=== PATIENT | male | born 1975 | race American Indian/Alaskan Native ===

== ENCOUNTER 2017-10-27 14:58 | Outpatient (CLI) | payer OTHER ==
[2017-10-27 15:09] LABS: Basophils # (Auto) 0.1 K/mm3 (0.0-0.1); Basophils % (Auto) 0.5 % (0.0-1.8); Eosinophils % (Auto) 0.1 % (0.0-4.3); Hematocrit 37.1 % (35.5-45.6); Hemoglobin 12.5 gm/dl (11.8-15.2); Lymphocytes # (Auto) 1.5 K/mm3 (1.2-5.4); Lymphocytes % (Auto) 9.2 % (13.4-35.0); Mean Corpuscular HGB Conc 34 % (32-34); Mean Corpuscular Hemoglobin 29 pg (28-32); Mean Corpuscular Volume 87 fl (84-94); Monocytes # (Auto) 1.4 K/mm3 (0.0-0.8); Monocytes % (Auto) 8.5 % (0.0-7.3); Platelet Count 459 K/mm3 (140-440); Red Blood Count 4.27 M/mm3 (3.65-5.03); Red Cell Distribution Width 16.9 % (13.2-15.2)
[2017-10-27 15:38] LABS: Albumin 3.8 g/dL (3.9-5)
== END 2017-10-27 14:59 | disposition home or self-care (01) ==
LOC: LABHHL 14:58
PROVIDERS: ATTEND Student in an Organized Health Care Education/Training Program
DX: E87.6 Hypokalemia (principal); D72.829 Elevated white blood cell count, unspecified; E11.9 Type 2 diabetes mellitus without complications; I10 Essential (primary) hypertension; D64.9 Anemia, unspecified; F41.9 Anxiety disorder, unspecified; F17.210 Nicotine dependence, cigarettes, uncomplicated; Z82.49 Family history of ischemic heart disease and other diseases of the circulatory system; Z83.3 Family history of diabetes mellitus
CPT/HCPCS: 36415; 80053; 85025; 87040; 87076; 87186

== ENCOUNTER 2017-10-27 18:19 | Inpatient (IN) | payer OTHER, MEDICAID ==
[2017-10-27] MEDS ORDERED: PERCOCET 5/325 PO ONE (19:05)
[2017-10-27] MEDS ORDERED: NACL 0.9% 500 ML 500 ML IV ONE (19:05)
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
[2017-10-27 20:06] LABS: Hematocrit 29.5 % (35.5-45.6); Hemoglobin 10.5 gm/dl (11.8-15.2); Mean Corpuscular HGB Conc 36 % (32-34); Mean Corpuscular Hemoglobin 31 pg (28-32); Mean Corpuscular Volume 86 fl (84-94); Platelet Count 353 K/mm3 (140-440); Red Blood Count 3.45 M/mm3 (3.65-5.03); Red Cell Distribution Width 16.5 % (13.2-15.2)
[2017-10-27 20:15] LABS: INR 1.19 (0.87-1.13)
[2017-10-27 20:16] LABS: Partial Thromboplastin Time 27.8 Sec. (24.2-36.6)
[2017-10-27 20:35] LABS: Alanine Aminotransferase 48 units/L (7-56); Albumin 3.1 g/dL (3.9-5); BUN/Creatinine Ratio 14; Basophils % (Manual) 0 % (0.0-1.8); Blood Urea Nitrogen 19 mg/dL (9-20); Eosinophils % (Manual) 0 % (0.0-4.3); Hemolysis Index 5; Total Cells Counted 100
[2017-10-27 20:37] LABS: Anisocytosis Few; Target Cells 1+
[2017-10-27] MEDS ORDERED: K-DUR PO ONE (20:49)
[2017-10-27] MEDS: KCL 10MEQ/100ML 10 MEQ/100 ML BAG IV SCH ×3 (21:26→23:32)
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
[2017-10-27] MEDS ORDERED: TYLENOL PO PRN (23:14)
--- NOTE | 2017-10-27 23:25 | History and Physical Report ---
History of Present Illness Date of examination: 10/27/17 History of present illness: 42-year-old man with a history of diabetes, pancreatitis, short gut syndrome comes emergency room with complaints of generalized weakness, cramps in his arms , legs and stomach, nausea, + bowel movement , has abdominal pain, this is chronic in nature. Review Of Systems: Constitutional: no fever, chills, weight loss Ears, eyes, nose, mouth and throat: no nasal congestion, no nasal discharge, no sinus pressure, blurry vision, diplopia Neck: No neck pain or rigidity. Cardiovascular: chest pain, orthopnea, palpitations Respiratory: No shortness of breath, cough Gastrointestinal: hematochezia Genitourinary : no dysuria, frequency , hematuria Musculoskeletal: no joint swelling or muscle ache Integumentary: no rash, no pruritis Neurological: no parathesias, focal weakness Endocrine: no cold or heat intolerance, no polyuria or polydipsia Hematologic/Lymphatic: no easy bruising, no easy bleeding, no gland swelling Allergic/Immunologic: no urticaria, no angioedema. PAST MEDICAL HISTORY:diabetes, pancreatitis, short gut syndrome PAST SURGICAL HISTORY: Multiple abdominal surgeries, splenectomy FAMILY HISTORY: Hypertension SOCIAL HISTORY: Smoke 1/3 pack a day, no alcohol or drugs Medications and Allergies Allergies Allergy/AdvReac Type Severity Reaction Status Date / Time No Known Allergies Allergy Unverified 01/30/15 15:46 Home Medications Medication Instructions Recorded Confirmed Last Taken Type Promethazine [Phenergan TAB] 25 mg PO QDAY 01/30/15 12/02/16 01/10/16 History Pantoprazole [Protonix TAB] 40 mg PO DAILY #30 tablet 01/10/16 12/02/16 Unknown Rx oxyCODONE /ACETAMINOPHEN [Percocet 2 tab PO Q6H PRN #10 tablet 12/09/16 Unknown Rx 5/325 mg] Active Meds: Active Medications Acetaminophen (Tylenol) 650 mg PO Q4H PRN PRN Reason: Pain MILD(1-3)/Fever >100.5/ACEVEDO Acetaminophen/Hydrocodone Bitart ([place] 5/325) 2 each PO Q4H PRN PRN Reason: Pain, Moderate (4-6) Enoxaparin Sodium (Lovenox) 30 mg SUB-Q QDAY LORNA Potassium Chloride (Kcl 10meq/100ml) 10 meq in 100 mls @ 100 mls/hr IV Q1H LORNA Stop: 10/28/17 00:59 Last Admin: 10/27/17 22:09 Dose: 100 mls/hr Ondansetron HCl (Zofran) 4 mg IV Q8H PRN PRN Reason: Nausea And Vomiting Sodium Chloride (Sodium Chloride Flush Syringe 10 Ml) 10 ml IV BID LORNA Sodium Chloride (Sodium Chloride Flush Syringe 10 Ml) 10 ml IV PRN PRN PRN Reason: LINE FLUSH Exam - Physical Exam Narrative exam: Gen. appearance: Patient lying in bed, no apparent distress HEENT: Normocephalic, atraumatic, pupils equally round and reactive to light, extraocular movement intact, and no sclericterus,. No JVD or thyromegaly or nodule,neck supple, no carotid bruit ,mucous membranes moist, no exudate or erythema Heart: S1, S2, regular rate and rhythm Lungs: Clear to auscultation bilaterally, breathing comfortable Abdomen: Positive bowel sounds, tender mid abdomen, nondistended, no organomegaly Extremity: No edema, cyanosis, clubbing Skin: No rash, nodules, warm, dry Neuro: Oriented 3, cranial nerves II-12 intact, speech is fluent, motor and sensory intact - Constitutional Vitals: Temp Pulse Resp BP Pulse Ox 97.7 F 58 L 12 87/59 97 10/27/17 18:31 10/27/17 21:47 10/27/17 21:47 10/27/17 21:47 10/27/17 21:47 Results - Labs CBC & Chem 7: 10/30/17 07:01 10/31/17 04:30 Labs: Abnormal lab results 10/27/17 10/27/17 10/27/17 Range/Units 21:56 Unknown Unknown WBC 15.3 H (4.5-11.0) K/mm3 RBC 3.45 L (3.65-5.03) M/mm3 Hgb 10.5 L (11.8-15.2) gm/dl Hct 29.5 L (35.5-45.6) % MCHC 36 H (32-34) % RDW 16.5 H (13.2-15.2) % Seg Neuts % (Manual) 89.0 H (40.0-70.0) % Lymphocytes % (Manual) 6.0 L (13.4-35.0) % Seg Neutrophils # Man 13.6 H (1.8-7.7) K/mm3 Lymphocytes # (Manual) 0.9 L (1.2-5.4) K/mm3 PT 15.8 H (12.2-14.9) Sec. INR 1.19 H (0.87-1.13) Potassium (3.6-5.0) mmol/L Carbon Dioxide (22-30) mmol/L Glucose (75-100) mg/dL Calcium (8.4-10.2) mg/dL Alkaline Phosphatase (35-129) units/L Total Creatine Kinase (55-170) units/L Albumin (3.9-5) g/dL Lipase 73 H (13-60) units/L // Range/Units Unknown WBC (4.5-11.0) K/mm3 RBC (3.65-5.03) M/mm3 Hgb (11.8-15.2) gm/dl Hct (35.5-45.6) % MCHC (32-34) % RDW (13.2-15.2) % Seg Neuts % (Manual) (40.0-70.0) % Lymphocytes % (Manual) (13.4-35.0) % Seg Neutrophils # Man (1.8-7.7) K/mm3 Lymphocytes # (Manual) (1.2-5.4) K/mm3 PT (12.2-14.9) Sec. INR (0.87-1.13) Potassium 2.0 L* (3.6-5.0) mmol/L Carbon Dioxide 18 L (22-30) mmol/L Glucose 124 H (75-100) mg/dL Calcium 8.0 L (8.4-10.2) mg/dL Alkaline Phosphatase 425 H (35-129) units/L Total Creatine Kinase 43 L (55-170) units/L Albumin 3.1 L (3.9-5) g/dL Lipase (13-60) units/L - Imaging and Cardiology CT scan - abdomen: report reviewed CT scan - pelvis: report reviewed Assessment and Plan Assessment Severe hypokalemia Ileus Metabolic acidosis Shortcut syndrome Diabetes Plan Admit to medicine Replete potassium, start IV fluid surgery consulted to see patient Fingersticks initiate insulin sliding scale Start DVT prophylaxis
[2017-10-27] MEDS ORDERED: D50W (25GM) Syringe IV PRN (23:29)
[2017-10-28] MEDS: NACL 0.9% 1000 ML 1,000 ML IV SCH ×2 (01:03→18:40)
[2017-10-28] MEDS: KCL 10MEQ/100ML 10 MEQ/100 ML BAG IV SCH ×5 (01:06→15:27)
[2017-10-28 06:30] LABS: Basophils # (Auto) 0.1 K/mm3 (0.0-0.1); Basophils % (Auto) 0.5 % (0.0-1.8); Eosinophils # (Auto) 0.1 K/mm3 (0.0-0.4); Eosinophils % (Auto) 0.6 % (0.0-4.3); Hemoglobin 9.8 gm/dl (11.8-15.2); Lymphocytes # (Auto) 1.1 K/mm3 (1.2-5.4); Lymphocytes % (Auto) 10.1 % (13.4-35.0); Mean Corpuscular HGB Conc 35 % (32-34); Mean Corpuscular Hemoglobin 30 pg (28-32); Mean Corpuscular Volume 85 fl (84-94); Monocytes # (Auto) 1.5 K/mm3 (0.0-0.8); Monocytes % (Auto) 14.1 % (0.0-7.3); Platelet Count 383 K/mm3 (140-440); Red Blood Count 3.29 M/mm3 (3.65-5.03); Red Cell Distribution Width 16.7 % (13.2-15.2)
[2017-10-28 06:51] LABS: BUN/Creatinine Ratio 11; Blood Urea Nitrogen 17 mg/dL (9-20); Calcium 7.7 mg/dL (8.4-10.2); Hemolysis Index 0
[2017-10-28] MEDS: HumaLOG SUB-Q SCH ×4 (07:30→21:39)
[2017-10-28] MEDS: LOVENOX SUB-Q SCH (11:00)
[2017-10-28] MEDS: SODIUM CHLORIDE FLUSH SYRINGE 10 ML IV SCH ×2 (12:21→21:39)
--- NOTE | 2017-10-28 12:24 | Progress Note ---
Assessment and Plan Assessment and plan: --Severe hypokalemia; Replace per protocol and monitor levels, Check magnesium --Abdominal ileus; Supportive care IV fluids, surgery consulted, Closely monitor, --Metabolic acidosis; Vigorous IV hydration and closely monitor levels --Type 2 diabetes mellitus; Accu-Chek sliding scale coverage and insulin as needed --Short gut syndrome; supportive care --Moderate malnutrition/hypoalbuminemia; continue supportive care and nutritional supplements as needed --DVT prophylaxis with Lovenox Closely monitor the patient and adjust management as needed History Interval history: Patient seen and evaluated medical records reviewed Patient feels better, when I evaluated the patient patient is eating his lunch No nausea vomiting, No abdominal pain Vital signs reviewed stable Patient is alert awake oriented 3 not in acute distress Hospitalist Physical - Constitutional Vitals: Temp Pulse Resp BP Pulse Ox 98.2 F 75 16 109/74 100 10/28/17 08:37 10/28/17 08:37 10/28/17 08:37 10/28/17 08:37 10/28/17 08:37 General appearance: Present: no acute distress, cachectic - EENT Eyes: Present: PERRL, EOM intact - Neck Neck: Present: supple, normal ROM - Respiratory Respiratory effort: normal Respiratory: negative: rales, rhonchi, wheezing - Cardiovascular Rhythm: regular Heart Sounds: Present: S1 & S2 - Extremities Extremities: no ischemia, No edema Peripheral Pulses: within normal limits - Abdominal General gastrointestinal: soft, non-tender, non-distended, normal bowel sounds - Integumentary Integumentary: Present: clear, warm - Psychiatric Psychiatric: appropriate mood/affect, cooperative - Neurologic Neurologic: moves all extremities Results - Labs CBC & Chem 7: 10/28/17 05:30 10/28/17 05:30 Labs: Laboratory Last Values WBC 10.9 K/mm3 (4.5-11.0) 10/28/17 05:30 RBC 3.29 M/mm3 (3.65-5.03) L 10/28/17 05:30 Hgb 9.8 gm/dl (11.8-15.2) L 10/28/17 05:30 Hct 28.0 % (35.5-45.6) L D 10/28/17 05:30 MCV 85 fl (84-94) 10/28/17 05:30 MCH 30 pg (28-32) 10/28/17 05:30 MCHC 35 % (32-34) H 10/28/17 05:30 RDW 16.7 % (13.2-15.2) H 10/28/17 05:30 Plt Count 383 K/mm3 (140-440) 10/28/17 05:30 Lymph % (Auto) 10.1 % (13.4-35.0) L 10/28/17 05:30 [place] % (Auto) 14.1 % (0.0-7.3) H 10/28/17 05:30 Eos % (Auto) 0.6 % (0.0-4.3) 10/28/17 05:30 Baso % (Auto) 0.5 % (0.0-1.8) 10/28/17 05:30 Lymph # 1.1 K/mm3 (1.2-5.4) L 10/28/17 05:30 [place] # 1.5 K/mm3 (0.0-0.8) H 10/28/17 05:30 Eos # 0.1 K/mm3 (0.0-0.4) 10/28/17 05:30 Baso # 0.1 K/mm3 (0.0-0.1) 10/28/17 05:30 Add Manual Diff Complete 10/27/17 Unknown Total Counted 100 10/27/17 Unknown Seg Neutrophils % 74.7 % (40.0-70.0) H 10/28/17 05:30 Seg Neuts % (Manual) 89.0 % (40.0-70.0) H 10/27/17 Unknown Band Neutrophils % 0 % 10/27/17 Unknown Lymphocytes % (Manual) 6.0 % (13.4-35.0) L 10/27/17 Unknown Reactive Lymphs % (Man) 0 % 10/27/17 Unknown Monocytes % (Manual) 5.0 % (0.0-7.3) 10/27/17 Unknown Eosinophils % (Manual) 0 % (0.0-4.3) 10/27/17 Unknown Basophils % (Manual) 0 % (0.0-1.8) 10/27/17 Unknown Metamyelocytes % 0 % 10/27/17 Unknown Myelocytes % 0 % 10/27/17 Unknown Promyelocytes % 0 % 07/13/18 Unknown Blast Cells % 0 % 10/27/17 Unknown Nucleated RBC % Not Reportable 10/27/17 Unknown Seg Neutrophils # 8.1 K/mm3 (1.8-7.7) H 10/28/17 05:30 Seg Neutrophils # Man 13.6 K/mm3 (1.8-7.7) H 10/27/17 Unknown Band Neutrophils # 0.0 K/mm3 10/27/17 Unknown Lymphocytes # (Manual) 0.9 K/mm3 (1.2-5.4) L 10/27/17 Unknown Abs React Lymphs (Man) 0.0 K/mm3 10/27/17 Unknown Monocytes # (Manual) 0.8 K/mm3 (0.0-0.8) 10/27/17 Unknown Eosinophils # (Manual) 0.0 K/mm3 (0.0-0.4) 10/27/17 Unknown Basophils # (Manual) 0.0 K/mm3 (0.0-0.1) 10/27/17 Unknown Metamyelocytes # 0.0 K/mm3 10/27/17 Unknown Myelocytes # 0.0 K/mm3 10/27/17 Unknown Promyelocytes # 0.0 K/mm3 10/27/17 Unknown Blast Cells # 0.0 K/mm3 10/27/17 Unknown WBC Morphology Not Reportable 10/27/17 Unknown Hypersegmented Neuts Not Reportable 10/27/17 Unknown Hyposegmented Neuts Not Reportable 10/27/17 Unknown Hypogranular Neuts Not Reportable 10/27/17 Unknown Smudge Cells Not Reportable 10/27/17 Unknown Toxic Granulation Not Reportable 10/27/17 Unknown Toxic Vacuolation Not Reportable 10/27/17 Unknown Dohle Bodies Not Reportable 10/27/17 Unknown Pelger-Huet Anomaly Not Reportable 10/27/17 Unknown Elina Rods Not Reportable 10/27/17 Unknown Platelet Estimate Appears normal 10/27/17 Unknown Clumped Platelets Not Reportable 10/27/17 Unknown Plt Clumps, EDTA Not Reportable 10/27/17 Unknown Large Platelets Not Reportable 10/27/17 Unknown Giant Platelets Not Reportable 10/27/17 Unknown Platelet Satelliting Not Reportable 10/27/17 Unknown Plt Morphology Comment Not Reportable 10/27/17 Unknown RBC Morphology Not Reportable 10/27/17 Unknown Dimorphic RBCs Not Reportable 10/27/17 Unknown Polychromasia Not Reportable 10/27/17 Unknown Hypochromasia Not Reportable 10/27/17 Unknown Poikilocytosis Not Reportable 10/27/17 Unknown Anisocytosis Few 10/27/17 Unknown Microcytosis Not Reportable 10/27/17 Unknown Macrocytosis Not Reportable 10/27/17 Unknown Spherocytes Not Reportable 10/27/17 Unknown Pappenheimer Bodies Not Reportable 10/27/17 Unknown Sickle Cells Not Reportable 10/27/17 Unknown Target Cells 1+ 10/27/17 Unknown Tear Drop Cells Not Reportable 10/27/17 Unknown Ovalocytes Not Reportable 10/27/17 Unknown Helmet Cells Not Reportable 10/27/17 Unknown Gray-[place] Bodies Not Reportable 10/27/17 Unknown [place] Rings Not Reportable 10/27/17 Unknown Eduardo Cells Not Reportable 10/27/17 Unknown Bite Cells Not Reportable 10/27/17 Unknown Crenated Cell Not Reportable 10/27/17 Unknown Elliptocytes Not Reportable 10/27/17 Unknown Acanthocytes (Spur) Not Reportable 10/27/17 Unknown Rouleaux Not Reportable 10/27/17 Unknown Hemoglobin C Crystals Not Reportable 10/27/17 Unknown Schistocytes Not Reportable 10/27/17 Unknown Malaria parasites Not Reportable 10/27/17 Unknown [place] Bodies Not Reportable 10/27/17 Unknown Hem Pathologist Commnt No 10/27/17 Unknown PT 15.8 Sec. (12.2-14.9) H 10/27/17 Unknown INR 1.19 (0.87-1.13) H 10/27/17 Unknown APTT 27.8 Sec. (24.2-36.6) 10/27/17 Unknown Sodium 142 mmol/L (137-145) 10/28/17 05:30 Potassium 2.3 mmol/L (3.6-5.0) L* D 10/28/17 05:30 Chloride 106.5 mmol/L (98-107) 10/28/17 05:30 Carbon Dioxide 21 mmol/L (22-30) L 10/28/17 05:30 Anion Gap 17 mmol/L 10/28/17 05:30 BUN 17 mg/dL (9-20) 10/28/17 05:30 Creatinine 1.5 mg/dL (0.8-1.5) 10/28/17 05:30 Estimated GFR > 60 ml/min 10/28/17 05:30 BUN/Creatinine Ratio 11 % 10/28/17 05:30 Glucose 101 mg/dL (75-100) H 10/28/17 05:30 POC Glucose 105 (70-105) 10/28/17 11:32 Lactic Acid 0.90 mmol/L (0.7-2.0) 10/27/17 Unknown Calcium 7.7 mg/dL (8.4-10.2) L 10/28/17 05:30 Magnesium 2.00 mg/dL (1.7-2.3) 10/27/17 Unknown Total Bilirubin 0.30 mg/dL (0.1-1.2) 10/27/17 Unknown AST 29 units/L (5-40) 10/27/17 Unknown ALT 48 units/L (7-56) 10/27/17 Unknown Alkaline Phosphatase 425 units/L (35-129) H 10/27/17 Unknown Total Creatine Kinase 43 units/L (55-170) L 10/27/17 Unknown Total Protein 6.9 g/dL (6.3-8.2) 10/27/17 Unknown Albumin 3.1 g/dL (3.9-5) L 10/27/17 Unknown Albumin/Globulin Ratio 0.8 % 10/27/17 Unknown Lipase 73 units/L (13-60) H 10/27/17 21:56 Blood Type A POSITIVE 10/27/17 Unknown Antibody Screen Negative 10/27/17 Unknown
[2017-10-28] MEDS: ZOFRAN IV PRN (14:10)
[2017-10-28] MEDS: PROTONIX PO SCH (17:58)
[2017-10-28] MEDS: NORCO 5/325 PO PRN (21:34)
--- NOTE | 2017-10-28 22:30 | Event Note ---
Date: 10/28/17 Dr. Hale is the general surgeon that is consulting on this case. I am not involved in this case.
[2017-10-29] MEDS: KCL 10MEQ/100ML 10 MEQ/100 ML BAG IV SCH ×4 (01:07→04:48)
[2017-10-29] MEDS: ZOFRAN IV PRN ×2 (01:12→21:00)
[2017-10-29] MEDS: MORPHINE IV PRN ×2 (01:12→20:59)
[2017-10-29] MEDS: NORCO 5/325 PO PRN (04:52)
[2017-10-29 05:54] LABS: Basophils # (Auto) 0.1 K/mm3 (0.0-0.1); Basophils % (Auto) 0.5 % (0.0-1.8); Eosinophils % (Auto) 0.5 % (0.0-4.3); Hematocrit 28.8 % (35.5-45.6); Lymphocytes # (Auto) 2.1 K/mm3 (1.2-5.4); Lymphocytes % (Auto) 18.9 % (13.4-35.0); Mean Corpuscular HGB Conc 35 % (32-34); Mean Corpuscular Hemoglobin 30 pg (28-32); Mean Corpuscular Volume 86 fl (84-94); Monocytes # (Auto) 1.6 K/mm3 (0.0-0.8); Monocytes % (Auto) 14.5 % (0.0-7.3); Platelet Count 364 K/mm3 (140-440); Red Blood Count 3.36 M/mm3 (3.65-5.03); Red Cell Distribution Width 16.9 % (13.2-15.2)
[2017-10-29 06:08] LABS: Alanine Aminotransferase 39 units/L (7-56); Albumin 2.9 g/dL (3.9-5); BUN/Creatinine Ratio 10; Blood Urea Nitrogen 13 mg/dL (9-20); Calcium 7.4 mg/dL (8.4-10.2); Hemolysis Index 0
[2017-10-29] MEDS: PROTONIX PO SCH (09:32)
[2017-10-29] MEDS: SODIUM CHLORIDE FLUSH SYRINGE 10 ML IV SCH ×2 (09:33→21:01)
--- NOTE | 2017-10-29 10:57 | Progress Note ---
Assessment and Plan Assessment and plan: --Abdominal ileus; Supportive care IV fluids, Closely monitor, Will check abdominal series , pending surgical consult --Hyperkalemia; recheck and adjust as needed --Severe hypokalemia; Replaced per protocol recheck potassium and magnesium --Metabolic acidosis; Vigorous IV hydration and closely monitor levels --Type 2 diabetes mellitus; Accu-Chek sliding scale coverage and insulin as needed --Short gut syndrome; supportive care --Moderate malnutrition/hypoalbuminemia; continue supportive care and nutritional supplements as needed --DVT prophylaxis with Lovenox Closely monitor the patient and adjust management as needed History Interval history: Patient Seen and examined medical records reviewed Patient complains of severe nausea and vomiting However tolerated breakfast Complains of mild abdominal pain, intermittent vomiting Alert awake oriented 3 Vital signs reviewed Hospitalist Physical - Constitutional Vitals: Temp Pulse Resp BP Pulse Ox 98.3 F 62 20 91/76 98 10/29/17 07:06 10/29/17 07:06 10/29/17 07:06 10/29/17 07:06 10/29/17 07:06 General appearance: Present: no acute distress, cachectic - EENT Eyes: Present: PERRL, EOM intact - Neck Neck: Present: supple, normal ROM - Respiratory Respiratory effort: normal Respiratory: negative: rales, rhonchi, wheezing - Cardiovascular Rhythm: regular Heart Sounds: Present: S1 & S2 - Extremities Extremities: no ischemia, No edema - Abdominal General gastrointestinal: soft, non-tender, distended ( mild tension), normal bowel sounds - Integumentary Integumentary: Present: clear, warm - Psychiatric Psychiatric: appropriate mood/affect, cooperative - Neurologic Neurologic: CNII-XII intact, moves all extremities Results - Labs CBC & Chem 7: 10/29/17 04:49 10/29/17 12:15 Labs: Laboratory Last Values WBC 10.9 K/mm3 (4.5-11.0) 10/29/17 04:49 RBC 3.36 M/mm3 (3.65-5.03) L 10/29/17 04:49 Hgb 10.0 gm/dl (11.8-15.2) L 10/29/17 04:49 Hct 28.8 % (35.5-45.6) L 10/29/17 04:49 MCV 86 fl (84-94) 10/29/17 04:49 MCH 30 pg (28-32) 10/29/17 04:49 MCHC 35 % (32-34) H 10/29/17 04:49 RDW 16.9 % (13.2-15.2) H 10/29/17 04:49 Plt Count 364 K/mm3 (140-440) 10/29/17 04:49 Lymph % (Auto) 18.9 % (13.4-35.0) 10/29/17 04:49 [place] % (Auto) 14.5 % (0.0-7.3) H 10/29/17 04:49 Eos % (Auto) 0.5 % (0.0-4.3) 10/29/17 04:49 Baso % (Auto) 0.5 % (0.0-1.8) 10/29/17 04:49 Lymph # 2.1 K/mm3 (1.2-5.4) 10/29/17 04:49 [place] # 1.6 K/mm3 (0.0-0.8) H 10/29/17 04:49 Eos # 0.0 K/mm3 (0.0-0.4) 10/29/17 04:49 Baso # 0.1 K/mm3 (0.0-0.1) 10/29/17 04:49 Add Manual Diff Complete 10/27/17 Unknown Total Counted 100 10/27/17 Unknown Seg Neutrophils % 65.6 % (40.0-70.0) 10/29/17 04:49 Seg Neuts % (Manual) 89.0 % (40.0-70.0) H 10/27/17 Unknown Band Neutrophils % 0 % 10/27/17 Unknown Lymphocytes % (Manual) 6.0 % (13.4-35.0) L 10/27/17 Unknown Reactive Lymphs % (Man) 0 % 10/27/17 Unknown Monocytes % (Manual) 5.0 % (0.0-7.3) 10/27/17 Unknown Eosinophils % (Manual) 0 % (0.0-4.3) 10/27/17 Unknown Basophils % (Manual) 0 % (0.0-1.8) 10/27/17 Unknown Metamyelocytes % 0 % 10/27/17 Unknown Myelocytes % 0 % 10/27/17 Unknown Promyelocytes % 0 % 10/27/17 Unknown Blast Cells % 0 % 10/27/17 Unknown Nucleated RBC % Not Reportable 10/27/17 Unknown Seg Neutrophils # 7.2 K/mm3 (1.8-7.7) 10/29/17 04:49 Seg Neutrophils # Man 13.6 K/mm3 (1.8-7.7) H 10/27/17 Unknown Band Neutrophils # 0.0 K/mm3 10/27/17 Unknown Lymphocytes # (Manual) 0.9 K/mm3 (1.2-5.4) L 10/27/17 Unknown Abs React Lymphs (Man) 0.0 K/mm3 10/27/17 Unknown Monocytes # (Manual) 0.8 K/mm3 (0.0-0.8) 10/27/17 Unknown Eosinophils # (Manual) 0.0 K/mm3 (0.0-0.4) 10/27/17 Unknown Basophils # (Manual) 0.0 K/mm3 (0.0-0.1) 10/27/17 Unknown Metamyelocytes # 0.0 K/mm3 10/27/17 Unknown Myelocytes # 0.0 K/mm3 10/27/17 Unknown Promyelocytes # 0.0 K/mm3 10/27/17 Unknown Blast Cells # 0.0 K/mm3 10/27/17 Unknown WBC Morphology Not Reportable 10/27/17 Unknown Hypersegmented Neuts Not Reportable 10/27/17 Unknown Hyposegmented Neuts Not Reportable 10/27/17 Unknown Hypogranular Neuts Not Reportable 10/27/17 Unknown Smudge Cells Not Reportable 10/27/17 Unknown Toxic Granulation Not Reportable 10/27/17 Unknown Toxic Vacuolation Not Reportable 10/27/17 Unknown Dohle Bodies Not Reportable 10/27/17 Unknown Pelger-Huet Anomaly Not Reportable 10/27/17 Unknown Elina Rods Not Reportable 10/27/17 Unknown Platelet Estimate Appears normal 10/27/17 Unknown Clumped Platelets Not Reportable 10/27/17 Unknown Plt Clumps, EDTA Not Reportable 10/27/17 Unknown Large Platelets Not Reportable 10/27/17 Unknown Giant Platelets Not Reportable 10/27/17 Unknown Platelet Satelliting Not Reportable 10/27/17 Unknown Plt Morphology Comment Not Reportable 10/27/17 Unknown RBC Morphology Not Reportable 10/27/17 Unknown Dimorphic RBCs Not Reportable 10/27/17 Unknown Polychromasia Not Reportable 10/27/17 Unknown Hypochromasia Not Reportable 10/27/17 Unknown Poikilocytosis Not Reportable 10/27/17 Unknown Anisocytosis Few 10/27/17 Unknown Microcytosis Not Reportable 10/27/17 Unknown Macrocytosis Not Reportable 10/27/17 Unknown Spherocytes Not Reportable 10/27/17 Unknown Pappenheimer Bodies Not Reportable 10/27/17 Unknown Sickle Cells Not Reportable 10/27/17 Unknown Target Cells 1+ 10/27/17 Unknown Tear Drop Cells Not Reportable 10/27/17 Unknown Ovalocytes Not Reportable 10/27/17 Unknown Helmet Cells Not Reportable 10/27/17 Unknown Gray-[place] Bodies Not Reportable 10/27/17 Unknown [place] Rings Not Reportable 10/27/17 Unknown Eduardo Cells Not Reportable 10/27/17 Unknown Bite Cells Not Reportable 10/27/17 Unknown Crenated Cell Not Reportable 10/27/17 Unknown Elliptocytes Not Reportable 10/27/17 Unknown Acanthocytes (Spur) Not Reportable 10/27/17 Unknown Rouleaux Not Reportable 10/27/17 Unknown Hemoglobin C Crystals Not Reportable 10/27/17 Unknown Schistocytes Not Reportable 10/27/17 Unknown Malaria parasites Not Reportable 10/27/17 Unknown [place] Bodies Not Reportable 10/27/17 Unknown Hem Pathologist Commnt No 10/27/17 Unknown PT 15.8 Sec. (12.2-14.9) H 10/27/17 Unknown INR 1.19 (0.87-1.13) H 10/27/17 Unknown APTT 27.8 Sec. (24.2-36.6) 10/27/17 Unknown Sodium 136 mmol/L (137-145) L 10/29/17 04:49 Potassium 6.9 mmol/L (3.6-5.0) H* D 10/29/17 04:49 Chloride 103.5 mmol/L (98-107) 10/29/17 04:49 Carbon Dioxide 23 mmol/L (22-30) 10/29/17 04:49 Anion Gap 16 mmol/L 10/29/17 04:49 BUN 13 mg/dL (9-20) 10/29/17 04:49 Creatinine 1.3 mg/dL (0.8-1.5) 10/29/17 04:49 Estimated GFR > 60 ml/min 10/29/17 04:49 BUN/Creatinine Ratio 10 % 10/29/17 04:49 Glucose 79 mg/dL (75-100) 10/29/17 04:49 POC Glucose 83 (70-105) 10/29/17 06:21 Lactic Acid 0.90 mmol/L (0.7-2.0) 10/27/17 Unknown Calcium 7.4 mg/dL (8.4-10.2) L 10/29/17 04:49 Magnesium 1.80 mg/dL (1.7-2.3) 10/29/17 04:49 Total Bilirubin 0.60 mg/dL (0.1-1.2) 10/29/17 04:49 AST 41 units/L (5-40) H 10/29/17 04:49 ALT 39 units/L (7-56) 10/29/17 04:49 Alkaline Phosphatase 406 units/L (35-129) H 10/29/17 04:49 Total Creatine Kinase 43 units/L (55-170) L 10/27/17 Unknown Total Protein 6.2 g/dL (6.3-8.2) L D 10/29/17 04:49 Albumin 2.9 g/dL (3.9-5) L 10/29/17 04:49 Albumin/Globulin Ratio 0.9 % 10/29/17 04:49 Lipase 73 units/L (13-60) H 10/27/17 21:56 Blood Type A POSITIVE 10/27/17 Unknown Antibody Screen Negative 10/27/17 Unknown
[2017-10-29] MEDS: LOVENOX SUB-Q SCH ×2 (11:50→16:31)
[2017-10-29] MEDS: HumaLOG SUB-Q SCH ×2 (11:52→22:00)
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
[2017-10-29] MEDS ORDERED: K-DUR PO ONE (14:00)
[2017-10-29] MEDS ORDERED: MILK OF MAGNESIA PO ONE ×2 (14:07→16:00)
[2017-10-29] MEDS ORDERED: NACL 0.9% 1000 ML 1,000 ML with KCL 20 MEQ IV SCH (15:10)
--- NOTE | 2017-10-29 15:17 | Event Note ---
Date: 10/29/17 Abdominal series is findings reviewed Moderate distended large bowel loops with air-fluid levels represent colonic ileus fecal impaction, constipation We will treat constipation with milk of magnesia/enema as needed Change diet to clear liquids as tolerated Hypokalemia; potassium 2.6, replaced with 40 mEq by mouth and 40 mEq IV Closely monitor electrolytes and adjust as needed Surgeon Dr. Hale evaluated the patient Recommend, rectal tube, stool softener Nutrition consult, possible TPN Plan of care reviewed with the patient, security and privacy consultant at the bedside and the nurse. Patient stable to be transferred out of telemetry to 3B surgical floor
[2017-10-29] MEDS: KCL 20MEQ/100ML 20 MEQ/100 ML BAG IV SCH ×3 (16:50→23:06)
[2017-10-29] MEDS: DILAUDID IV PRN ×2 (16:54→23:24)
[2017-10-29] MEDS ORDERED: NACL 0.9% 1000 ML 1,000 ML ONE (20:37)
[2017-10-30] MEDS: DILAUDID IV PRN ×3 (07:10→23:34)
[2017-10-30 07:54] LABS: Basophils # (Auto) 0.1 K/mm3 (0.0-0.1); Basophils % (Auto) 0.8 % (0.0-1.8); Eosinophils # (Auto) 0.2 K/mm3 (0.0-0.4); Eosinophils % (Auto) 1.6 % (0.0-4.3); Hematocrit 27.4 % (35.5-45.6); Hemoglobin 9.4 gm/dl (11.8-15.2); Lymphocytes # (Auto) 1.5 K/mm3 (1.2-5.4); Lymphocytes % (Auto) 15.4 % (13.4-35.0); Mean Corpuscular HGB Conc 34 % (32-34); Mean Corpuscular Hemoglobin 30 pg (28-32); Mean Corpuscular Volume 87 fl (84-94); Monocytes # (Auto) 1.5 K/mm3 (0.0-0.8); Monocytes % (Auto) 15.3 % (0.0-7.3); Platelet Count 334 K/mm3 (140-440); Red Blood Count 3.14 M/mm3 (3.65-5.03); Red Cell Distribution Width 16.7 % (13.2-15.2)
[2017-10-30 08:00] LABS: BUN/Creatinine Ratio 8; Blood Urea Nitrogen 12 mg/dL (9-20); Calcium 8.5 mg/dL (8.4-10.2); Hemolysis Index 1
[2017-10-30] MEDS ORDERED: K-DUR PO ONE (08:15)
[2017-10-30] MEDS ORDERED: KPHOS 40 MMOL in NACL 0.9% 500 ML 500 ML IV ONE (08:16)
[2017-10-30] MEDS: HumaLOG SUB-Q SCH ×3 (08:32→17:15)
--- NOTE | 2017-10-30 09:24 | Progress Note ---
Assessment and Plan Assessment and plan: 42-year-old male patient incarcerated from [facility] system with history of small gut syndrome Was admitted through emergency room with abdominal pain, noted to have colonic ileus Symptomatically managed, evaluated by surgery, recommend rectal tube and TPN, patient refused --Abdominal/colonic ileus; Supportive care IV fluids, Closely monitor, abdominal series reviewed, surgery evaluated the patient , recommend Rectal tube , TPN , nutrition consult pending , patient refused rectal tube Continue soft diet as tolerated --Severe hypokalemia; Replaced per protocol recheck potassium and magnesium --Hypo-phosphatemia; replaced per protocol --Metabolic acidosis; Vigorous IV hydration and closely monitor levels --Type 2 diabetes mellitus; Accu-Chek sliding scale coverage and insulin as needed --Short gut syndrome; supportive care, --Moderate malnutrition/hypoalbuminemia; continue supportive care and nutritional supplements as needed --DVT prophylaxis with Lovenox Closely monitor the patient and adjust management as needed Disposition; may be discharged back to the correctional facility once Colonic ileus improves History Interval history: Patient seen and examined medical records reviewed Requesting for more pain medications, however is hypotensive Surgery Dr. Longo evaluated the patient yesterday Recommend, rectal tube and long-term TPN And diffuse rectal tube, nutrition consult pending Patient feels better no new complaints Vital signs reviewed Hospitalist Physical - Constitutional Vitals: Temp Pulse Resp BP Pulse Ox 98.3 F 65 18 86/52 100 10/29/17 07:06 10/29/17 22:00 10/29/17 07:40 10/29/17 23:31 10/29/17 15:30 General appearance: Present: no acute distress, cachectic, disheveled - EENT Eyes: Present: PERRL, EOM intact - Neck Neck: Present: supple, normal ROM - Respiratory Respiratory effort: normal Respiratory: bilateral: diminished, negative: rales, rhonchi, wheezing - Cardiovascular Rhythm: regular Heart Sounds: Present: S1 & S2 - Extremities Extremities: no ischemia, No edema - Abdominal General gastrointestinal: soft, non-tender, distended, normal bowel sounds - Integumentary Integumentary: Present: clear, warm - Psychiatric Psychiatric: appropriate mood/affect, cooperative - Neurologic Neurologic: CNII-XII intact, moves all extremities Results - Labs CBC & Chem 7: 10/30/17 07:01 10/30/17 07:01 Labs: Laboratory Last Values WBC 10.0 K/mm3 (4.5-11.0) 10/30/17 07:01 RBC 3.14 M/mm3 (3.65-5.03) L 10/30/17 07:01 Hgb 9.4 gm/dl (11.8-15.2) L 10/30/17 07:01 Hct 27.4 % (35.5-45.6) L 10/30/17 07:01 MCV 87 fl (84-94) 10/30/17 07:01 MCH 30 pg (28-32) 10/30/17 07:01 MCHC 34 % (32-34) 10/30/17 07:01 RDW 16.7 % (13.2-15.2) H 10/30/17 07:01 Plt Count 334 K/mm3 (140-440) 10/30/17 07:01 Lymph % (Auto) 15.4 % (13.4-35.0) 10/30/17 07:01 [place] % (Auto) 15.3 % (0.0-7.3) H 10/30/17 07:01 Eos % (Auto) 1.6 % (0.0-4.3) 10/30/17 07:01 Baso % (Auto) 0.8 % (0.0-1.8) 10/30/17 07:01 Lymph # 1.5 K/mm3 (1.2-5.4) 10/30/17 07:01 [place] # 1.5 K/mm3 (0.0-0.8) H 10/30/17 07:01 Eos # 0.2 K/mm3 (0.0-0.4) 10/30/17 07:01 Baso # 0.1 K/mm3 (0.0-0.1) 10/30/17 07:01 Add Manual Diff Complete 10/27/17 Unknown Total Counted 100 10/27/17 Unknown Seg Neutrophils % 66.9 % (40.0-70.0) 10/30/17 07:01 Seg Neuts % (Manual) 89.0 % (40.0-70.0) H 10/27/17 Unknown Band Neutrophils % 0 % 10/27/17 Unknown Lymphocytes % (Manual) 6.0 % (13.4-35.0) L 10/27/17 Unknown Reactive Lymphs % (Man) 0 % 10/27/17 Unknown Monocytes % (Manual) 5.0 % (0.0-7.3) 10/27/17 Unknown Eosinophils % (Manual) 0 % (0.0-4.3) 10/27/17 Unknown Basophils % (Manual) 0 % (0.0-1.8) 10/27/17 Unknown Metamyelocytes % 0 % 10/27/17 Unknown Myelocytes % 0 % 10/27/17 Unknown Promyelocytes % 0 % 10/27/17 Unknown Blast Cells % 0 % 10/27/17 Unknown Nucleated RBC % Not Reportable 10/27/17 Unknown Seg Neutrophils # 6.7 K/mm3 (1.8-7.7) 10/30/17 07:01 Seg Neutrophils # Man 13.6 K/mm3 (1.8-7.7) H 10/27/17 Unknown Band Neutrophils # 0.0 K/mm3 10/27/17 Unknown Lymphocytes # (Manual) 0.9 K/mm3 (1.2-5.4) L 10/27/17 Unknown Abs React Lymphs (Man) 0.0 K/mm3 10/27/17 Unknown Monocytes # (Manual) 0.8 K/mm3 (0.0-0.8) 10/27/17 Unknown Eosinophils # (Manual) 0.0 K/mm3 (0.0-0.4) 10/27/17 Unknown Basophils # (Manual) 0.0 K/mm3 (0.0-0.1) 10/27/17 Unknown Metamyelocytes # 0.0 K/mm3 10/27/17 Unknown Myelocytes # 0.0 K/mm3 10/27/17 Unknown Promyelocytes # 0.0 K/mm3 10/27/17 Unknown Blast Cells # 0.0 K/mm3 10/27/17 Unknown WBC Morphology Not Reportable 10/27/17 Unknown Hypersegmented Neuts Not Reportable 10/27/17 Unknown Hyposegmented Neuts Not Reportable 10/27/17 Unknown Hypogranular Neuts Not Reportable 10/27/17 Unknown Smudge Cells Not Reportable 10/27/17 Unknown Toxic Granulation Not Reportable 10/27/17 Unknown Toxic Vacuolation Not Reportable 10/27/17 Unknown Dohle Bodies Not Reportable 10/27/17 Unknown Pelger-Huet Anomaly Not Reportable 10/27/17 Unknown Elina Rods Not Reportable 10/27/17 Unknown Platelet Estimate Appears normal 10/27/17 Unknown Clumped Platelets Not Reportable 10/27/17 Unknown Plt Clumps, EDTA Not Reportable 10/27/17 Unknown Large Platelets Not Reportable 10/27/17 Unknown Giant Platelets Not Reportable 10/27/17 Unknown Platelet Satelliting Not Reportable 10/27/17 Unknown Plt Morphology Comment Not Reportable 10/27/17 Unknown RBC Morphology Not Reportable 10/27/17 Unknown Dimorphic RBCs Not Reportable 10/27/17 Unknown Polychromasia Not Reportable 10/27/17 Unknown Hypochromasia Not Reportable 10/27/17 Unknown Poikilocytosis Not Reportable 10/27/17 Unknown Anisocytosis Few 10/27/17 Unknown Microcytosis Not Reportable 10/27/17 Unknown Macrocytosis Not Reportable 10/27/17 Unknown Spherocytes Not Reportable 10/27/17 Unknown Pappenheimer Bodies Not Reportable 10/27/17 Unknown Sickle Cells Not Reportable 10/27/17 Unknown Target Cells 1+ 10/27/17 Unknown Tear Drop Cells Not Reportable 10/27/17 Unknown Ovalocytes Not Reportable 10/27/17 Unknown Helmet Cells Not Reportable 10/27/17 Unknown [place] [place] Bodies Not Reportable 10/27/17 Unknown [place] Rings Not Reportable 10/27/17 Unknown [place] Cells Not Reportable 10/27/17 Unknown Bite Cells Not Reportable 10/27/17 Unknown Crenated Cell Not Reportable 10/27/17 Unknown Elliptocytes Not Reportable 10/27/17 Unknown Acanthocytes (Spur) Not Reportable 10/27/17 Unknown Rouleaux Not Reportable 10/27/17 Unknown Hemoglobin C Crystals Not Reportable 10/27/17 Unknown Schistocytes Not Reportable 10/27/17 Unknown Malaria parasites Not Reportable 10/27/17 Unknown [place] Bodies Not Reportable 10/27/17 Unknown Hem Pathologist Commnt No 10/27/17 Unknown PT 15.8 Sec. (12.2-14.9) H 10/27/17 Unknown INR 1.19 (0.87-1.13) H 10/27/17 Unknown APTT 27.8 Sec. (24.2-36.6) 10/27/17 Unknown Sodium 145 mmol/L (137-145) D 10/30/17 07:01 Potassium 2.9 mmol/L (3.6-5.0) L* 10/30/17 07:01 Chloride 107.0 mmol/L (98-107) 10/30/17 07:01 Carbon Dioxide 24 mmol/L (22-30) 10/30/17 07:01 Anion Gap 17 mmol/L 10/30/17 07:01 BUN 12 mg/dL (9-20) 10/30/17 07:01 Creatinine 1.5 mg/dL (0.8-1.5) 10/30/17 07:01 Estimated GFR > 60 ml/min 10/30/17 07:01 BUN/Creatinine Ratio 8 % 10/30/17 07:01 Glucose 76 mg/dL (75-100) 10/30/17 07:01 POC Glucose 99 (70-105) 10/30/17 08:25 Lactic Acid 0.90 mmol/L (0.7-2.0) 10/27/17 Unknown Calcium 8.5 mg/dL (8.4-10.2) 10/30/17 07:01 Phosphorus 1.50 mg/dL (2.5-4.5) L 10/30/17 07:01 Magnesium 2.10 mg/dL (1.7-2.3) 10/30/17 07:01 Total Bilirubin 0.60 mg/dL (0.1-1.2) 10/29/17 04:49 AST 41 units/L (5-40) H 10/29/17 04:49 ALT 39 units/L (7-56) 10/29/17 04:49 Alkaline Phosphatase 406 units/L (35-129) H 10/29/17 04:49 Total Creatine Kinase 43 units/L (55-170) L 10/27/17 Unknown Total Protein 6.2 g/dL (6.3-8.2) L 10/29/17 04:49 Albumin 2.9 g/dL (3.9-5) L 10/29/17 04:49 Albumin/Globulin Ratio 0.9 % 10/29/17 04:49 Lipase 73 units/L (13-60) H 10/27/17 21:56 Blood Type A POSITIVE 10/27/17 Unknown Antibody Screen Negative 10/27/17 Unknown
[2017-10-30] MEDS: NACL 0.9% 1000 ML 1,000 ML IV SCH ×2 (10:28→23:45)
[2017-10-30] MEDS: LOVENOX SUB-Q SCH ×2 (10:29→10:38)
[2017-10-30] MEDS: PROTONIX PO SCH (10:30)
[2017-10-30] MEDS: SODIUM CHLORIDE FLUSH SYRINGE 10 ML IV SCH (10:30)
[2017-10-30] MEDS: K-DUR PO SCH (12:48)
[2017-10-30] MEDS: ZOFRAN IV PRN (23:35)
[2017-10-31] MEDS: HumaLOG SUB-Q SCH ×5 (02:51→23:31)
[2017-10-31] MEDS: SODIUM CHLORIDE FLUSH SYRINGE 10 ML IV SCH ×3 (02:55→21:41)
[2017-10-31] MEDS: DILAUDID IV PRN ×4 (05:09→23:17)
[2017-10-31 06:54] LABS: BUN/Creatinine Ratio 8; Blood Urea Nitrogen 9 mg/dL (9-20); Calcium 7.9 mg/dL (8.4-10.2); Hemolysis Index 0
[2017-10-31] MEDS: NACL 0.9% 1000 ML 1,000 ML IV SCH (08:27)
[2017-10-31] MEDS: LOVENOX SUB-Q SCH ×2 (10:40→11:58)
[2017-10-31] MEDS: D5W/0.45% NACL/KCL 20 MEQ 20 MEQ/1,000 ML BAG IV SCH ×2 (11:45→23:18)
[2017-10-31] MEDS: PROTONIX PO SCH (11:56)
[2017-10-31] MEDS: K-DUR PO SCH (11:57)
--- NOTE | 2017-10-31 17:26 | Progress Note ---
Assessment and Plan Assessment and plan: 42-year-old male patient [facility] with history of small gut syndrome Was admitted through emergency room with abdominal pain, noted to have colonic ileus Symptomatically managed, evaluated by surgery, recommend rectal tube and TPN, patient refused --Abdominal/colonic ileus; Supportive care IV fluids, Closely monitor, abdominal series reviewed, surgery evaluated the patient , recommend Rectal tube , TPN , nutrition consult pending , patient refused rectal tube Continue soft diet as tolerated --Severe hypokalemia; Potassium 3.1 today. change iv fluid to D5W with Potassium, recheck in am --Hypo-phosphatemia; replaced per protocol --Metabolic acidosis; Vigorous IV hydration and closely monitor levels --Type 2 diabetes mellitus; Accu-Chek sliding scale coverage and insulin as needed --Short gut syndrome; supportive care, --Moderate malnutrition/hypoalbuminemia; continue supportive care and nutritional supplements as needed --DVT prophylaxis with Lovenox Closely monitor the patient and adjust management as needed Disposition; may be discharged back to the correctional facility once Colonic ileus improves History Interval history: feels better, less abdominal pain Hospitalist Physical - Physical exam Narrative exam: Constitutional; Not in acute distress, ill looking, malnourished HEENT: Atraumatic, normocephalic Neck: supple, no lymphadenopathy, JVD Lungs: Clear to auscultation, bilaterally, no wheeze CVS; S1-S2 regular, no murmurs, rubs or gallop, Abdomen; soft, non-tender, mild distended,bowel sounds are normal, Musculoskeletal; No edema, no clubbing, no cyanosis, [employer]: awake, alert,oriented x3, no focal neurological signs - Constitutional Vitals: Temp Pulse Resp BP Pulse Ox 97.7 F 43 L 18 93/65 100 10/31/17 12:00 10/31/17 13:21 10/31/17 12:00 10/31/17 12:00 10/31/17 13:21 General appearance: Present: no acute distress, cachectic Results - Labs CBC & Chem 7: 10/30/17 07:01 10/31/17 04:30 Labs: Laboratory Last Values WBC 10.0 K/mm3 (4.5-11.0) 10/30/17 07:01 RBC 3.14 M/mm3 (3.65-5.03) L 10/30/17 07:01 Hgb 9.4 gm/dl (11.8-15.2) L 10/30/17 07:01 Hct 27.4 % (35.5-45.6) L 10/30/17 07:01 MCV 87 fl (84-94) 10/30/17 07:01 MCH 30 pg (28-32) 10/30/17 07:01 MCHC 34 % (32-34) 10/30/17 07:01 RDW 16.7 % (13.2-15.2) H 10/30/17 07:01 Plt Count 334 K/mm3 (140-440) 10/30/17 07:01 Lymph % (Auto) 15.4 % (13.4-35.0) 10/30/17 07:01 [place] % (Auto) 15.3 % (0.0-7.3) H 10/30/17 07:01 Eos % (Auto) 1.6 % (0.0-4.3) 10/30/17 07:01 Baso % (Auto) 0.8 % (0.0-1.8) 10/30/17 07:01 Lymph # 1.5 K/mm3 (1.2-5.4) 10/30/17 07:01 [place] # 1.5 K/mm3 (0.0-0.8) H 10/30/17 07:01 Eos # 0.2 K/mm3 (0.0-0.4) 10/30/17 07:01 Baso # 0.1 K/mm3 (0.0-0.1) 10/30/17 07:01 Add Manual Diff Complete 10/27/17 Unknown Total Counted 100 10/27/17 Unknown Seg Neutrophils % 66.9 % (40.0-70.0) 10/30/17 07:01 Seg Neuts % (Manual) 89.0 % (40.0-70.0) H 10/27/17 Unknown Band Neutrophils % 0 % 10/27/17 Unknown Lymphocytes % (Manual) 6.0 % (13.4-35.0) L 10/27/17 Unknown Reactive Lymphs % (Man) 0 % 10/27/17 Unknown Monocytes % (Manual) 5.0 % (0.0-7.3) 10/27/17 Unknown Eosinophils % (Manual) 0 % (0.0-4.3) 10/27/17 Unknown Basophils % (Manual) 0 % (0.0-1.8) 10/27/17 Unknown Metamyelocytes % 0 % 10/27/17 Unknown Myelocytes % 0 % 10/27/17 Unknown Promyelocytes % 0 % 10/27/17 Unknown Blast Cells % 0 % 10/27/17 Unknown Nucleated RBC % Not Reportable 10/27/17 Unknown Seg Neutrophils # 6.7 K/mm3 (1.8-7.7) 10/30/17 07:01 Seg Neutrophils # Man 13.6 K/mm3 (1.8-7.7) H 10/27/17 Unknown Band Neutrophils # 0.0 K/mm3 10/27/17 Unknown Lymphocytes # (Manual) 0.9 K/mm3 (1.2-5.4) L 10/27/17 Unknown Abs React Lymphs (Man) 0.0 K/mm3 10/27/17 Unknown Monocytes # (Manual) 0.8 K/mm3 (0.0-0.8) 10/27/17 Unknown Eosinophils # (Manual) 0.0 K/mm3 (0.0-0.4) 10/27/17 Unknown Basophils # (Manual) 0.0 K/mm3 (0.0-0.1) 10/27/17 Unknown Metamyelocytes # 0.0 K/mm3 10/27/17 Unknown Myelocytes # 0.0 K/mm3 10/27/17 Unknown Promyelocytes # 0.0 K/mm3 10/27/17 Unknown Blast Cells # 0.0 K/mm3 10/27/17 Unknown WBC Morphology Not Reportable 10/27/17 Unknown Hypersegmented Neuts Not Reportable 10/27/17 Unknown Hyposegmented Neuts Not Reportable 10/27/17 Unknown Hypogranular Neuts Not Reportable 10/27/17 Unknown Smudge Cells Not Reportable 10/27/17 Unknown Toxic Granulation Not Reportable 10/27/17 Unknown Toxic Vacuolation Not Reportable 10/27/17 Unknown Dohle Bodies Not Reportable 10/27/17 Unknown Pelger-Huet Anomaly Not Reportable 10/27/17 Unknown Elina Rods Not Reportable 10/27/17 Unknown Platelet Estimate Appears normal 10/27/17 Unknown Clumped Platelets Not Reportable 10/27/17 Unknown Plt Clumps, EDTA Not Reportable 10/27/17 Unknown Large Platelets Not Reportable 10/27/17 Unknown Giant Platelets Not Reportable 10/27/17 Unknown Platelet Satelliting Not Reportable 10/27/17 Unknown Plt Morphology Comment Not Reportable 10/27/17 Unknown RBC Morphology Not Reportable 10/27/17 Unknown Dimorphic RBCs Not Reportable 10/27/17 Unknown Polychromasia Not Reportable 10/27/17 Unknown Hypochromasia Not Reportable 10/27/17 Unknown Poikilocytosis Not Reportable 10/27/17 Unknown Anisocytosis Few 10/27/17 Unknown Microcytosis Not Reportable 10/27/17 Unknown Macrocytosis Not Reportable 10/27/17 Unknown Spherocytes Not Reportable 10/27/17 Unknown Pappenheimer Bodies Not Reportable 10/27/17 Unknown Sickle Cells Not Reportable 10/27/17 Unknown Target Cells 1+ 10/27/17 Unknown Tear Drop Cells Not Reportable 10/27/17 Unknown Ovalocytes Not Reportable 10/27/17 Unknown Helmet Cells Not Reportable 10/27/17 Unknown [place] Bodies Not Reportable 10/27/17 Unknown [place] Rings Not Reportable 10/27/17 Unknown [place] Cells Not Reportable 10/27/17 Unknown Bite Cells Not Reportable 10/27/17 Unknown Crenated Cell Not Reportable 10/27/17 Unknown Elliptocytes Not Reportable 10/27/17 Unknown Acanthocytes (Spur) Not Reportable 10/27/17 Unknown Rouleaux Not Reportable 10/27/17 Unknown Hemoglobin C Crystals Not Reportable 10/27/17 Unknown Schistocytes Not Reportable 10/27/17 Unknown Malaria parasites Not Reportable 10/27/17 Unknown [place] Bodies Not Reportable 10/27/17 Unknown Hem Pathologist Commnt No 10/27/17 Unknown PT 15.8 Sec. (12.2-14.9) H 10/27/17 Unknown INR 1.19 (0.87-1.13) H 10/27/17 Unknown APTT 27.8 Sec. (24.2-36.6) 10/27/17 Unknown Sodium 150 mmol/L (137-145) H 10/31/17 04:30 Potassium 3.1 mmol/L (3.6-5.0) L 10/31/17 04:30 Chloride 112.4 mmol/L (98-107) H 10/31/17 04:30 Carbon Dioxide 23 mmol/L (22-30) 10/31/17 04:30 Anion Gap 18 mmol/L 10/31/17 04:30 BUN 9 mg/dL (9-20) 10/31/17 04:30 Creatinine 1.2 mg/dL (0.8-1.5) 10/31/17 04:30 Estimated GFR > 60 ml/min 10/31/17 04:30 BUN/Creatinine Ratio 8 % 10/31/17 04:30 Glucose 78 mg/dL (75-100) 10/31/17 04:30 POC Glucose 74 (70-105) 10/31/17 07:57 Lactic Acid 0.90 mmol/L (0.7-2.0) 10/27/17 Unknown Calcium 7.9 mg/dL (8.4-10.2) L 10/31/17 04:30 Phosphorus 3.00 mg/dL (2.5-4.5) D 10/31/17 04:30 Magnesium 1.90 mg/dL (1.7-2.3) 10/31/17 04:30 Total Bilirubin 0.60 mg/dL (0.1-1.2) 10/29/17 04:49 AST 41 units/L (5-40) H 10/29/17 04:49 ALT 39 units/L (7-56) 10/29/17 04:49 Alkaline Phosphatase 406 units/L (35-129) H 10/29/17 04:49 Total Creatine Kinase 43 units/L (55-170) L 10/27/17 Unknown Total Protein 6.2 g/dL (6.3-8.2) L 10/29/17 04:49 Albumin 2.9 g/dL (3.9-5) L 10/29/17 04:49 Albumin/Globulin Ratio 0.9 % 10/29/17 04:49 Lipase 73 units/L (13-60) H 10/27/17 21:56 Blood Type A POSITIVE 10/27/17 Unknown Antibody Screen Negative 10/27/17 Unknown
[2017-10-31] MEDS: ZOFRAN IV PRN (17:36)
[2017-10-31] MEDS: NORCO 5/325 PO PRN (21:21)
[2017-10-31] MEDS: MILK OF MAGNESIA PO PRN (23:18)
[2017-11-01] MEDS: HumaLOG SUB-Q SCH ×4 (08:15→23:38)
[2017-11-01] MEDS: K-DUR PO SCH (10:31)
[2017-11-01] MEDS: PROTONIX PO SCH (10:32)
[2017-11-01] MEDS: LOVENOX SUB-Q SCH (10:32)
[2017-11-01] MEDS: DILAUDID IV PRN ×3 (10:46→23:29)
[2017-11-01 10:56] LABS: Hematocrit 28.9 % (35.5-45.6); Hemoglobin 9.7 gm/dl (11.8-15.2); Mean Corpuscular HGB Conc 34 % (32-34); Mean Corpuscular Hemoglobin 30 pg (28-32); Mean Corpuscular Volume 88 fl (84-94); Platelet Count 338 K/mm3 (140-440); Red Blood Count 3.28 M/mm3 (3.65-5.03); Red Cell Distribution Width 17.3 % (13.2-15.2)
[2017-11-01 11:12] LABS: BUN/Creatinine Ratio 6; Blood Urea Nitrogen 8 mg/dL (9-20); Calcium 8.7 mg/dL (8.4-10.2); Hemolysis Index 0
[2017-11-01] MEDS: MORPHINE IV PRN ×2 (13:03→21:42)
[2017-11-01] MEDS: SODIUM CHLORIDE FLUSH SYRINGE 10 ML IV SCH ×2 (13:10→21:43)
--- NOTE | 2017-11-01 13:21 | Progress Note ---
Assessment and Plan Assessment and plan: 42-year-old male patient [facility] with history of small gut syndrome Was admitted through emergency room with abdominal pain, noted to have colonic ileus Symptomatically managed, evaluated by surgery, recommend rectal tube and TPN, patient refused --Abdominal/colonic ileus; Supportive care IV fluids, Closely monitor, abdominal series reviewed, surgery evaluated the patient , recommend Rectal tube , TPN , nutrition consult pending , patient refused rectal tube Continue soft diet as tolerated --Severe hypokalemia; Potassium 3.0 today. Continue iv fluid to D5W with Potassium, recheck in am --Hypo-phosphatemia; replaced per protocol --Metabolic acidosis; Vigorous IV hydration and closely monitor levels --Type 2 diabetes mellitus; Accu-Chek sliding scale coverage and insulin as needed --Short gut syndrome; supportive care, --Moderate malnutrition/hypoalbuminemia; continue supportive care and nutritional supplements as needed --DVT prophylaxis with Lovenox Closely monitor the patient and adjust management as needed Disposition; may be discharged home in few days once Colonic ileus improves To start TPN. Will discuss with case management about options History Interval history: feels better, less abdominal pain Hospitalist Physical - Physical exam Narrative exam: Constitutional; Not in acute distress, ill looking, malnourished HEENT: Atraumatic, normocephalic Neck: supple, no lymphadenopathy, JVD Lungs: Clear to auscultation, bilaterally, no wheeze CVS; S1-S2 regular, no murmurs, rubs or gallop, Abdomen; soft, non-tender, mild distended,bowel sounds are normal, Musculoskeletal; No edema, no clubbing, no cyanosis, [employer]: awake, alert,oriented x3, no focal neurological signs - Constitutional Vitals: Temp Pulse Resp BP Pulse Ox 97.5 F L 44 L 18 108/54 100 10/31/17 21:43 10/31/17 21:28 10/31/17 19:00 10/31/17 21:28 10/31/17 21:28 General appearance: Present: no acute distress, cachectic Results - Labs CBC & Chem 7: 11/02/17 05:25 11/02/17 05:25 Labs: Laboratory Last Values WBC 9.2 K/mm3 (4.5-11.0) 11/01/17 10:40 RBC 3.28 M/mm3 (3.65-5.03) L 11/01/17 10:40 Hgb 9.7 gm/dl (11.8-15.2) L 11/01/17 10:40 Hct 28.9 % (35.5-45.6) L 11/01/17 10:40 MCV 88 fl (84-94) 11/01/17 10:40 MCH 30 pg (28-32) 11/01/17 10:40 MCHC 34 % (32-34) 11/01/17 10:40 RDW 17.3 % (13.2-15.2) H 11/01/17 10:40 Plt Count 338 K/mm3 (140-440) 11/01/17 10:40 Lymph % (Auto) 15.4 % (13.4-35.0) 10/30/17 07:01 [place] % (Auto) 15.3 % (0.0-7.3) H 10/30/17 07:01 Eos % (Auto) 1.6 % (0.0-4.3) 10/30/17 07:01 Baso % (Auto) 0.8 % (0.0-1.8) 10/30/17 07:01 Lymph # 1.5 K/mm3 (1.2-5.4) 10/30/17 07:01 [place] # 1.5 K/mm3 (0.0-0.8) H 10/30/17 07:01 Eos # 0.2 K/mm3 (0.0-0.4) 10/30/17 07:01 Baso # 0.1 K/mm3 (0.0-0.1) 10/30/17 07:01 Add Manual Diff Complete 10/27/17 Unknown Total Counted 100 10/27/17 Unknown Seg Neutrophils % 66.9 % (40.0-70.0) 10/30/17 07:01 Seg Neuts % (Manual) 89.0 % (40.0-70.0) H 10/27/17 Unknown Band Neutrophils % 0 % 10/27/17 Unknown Lymphocytes % (Manual) 6.0 % (13.4-35.0) L 10/27/17 Unknown Reactive Lymphs % (Man) 0 % 10/27/17 Unknown Monocytes % (Manual) 5.0 % (0.0-7.3) 10/27/17 Unknown Eosinophils % (Manual) 0 % (0.0-4.3) 10/27/17 Unknown Basophils % (Manual) 0 % (0.0-1.8) 10/27/17 Unknown Metamyelocytes % 0 % 10/27/17 Unknown Myelocytes % 0 % 10/27/17 Unknown Promyelocytes % 0 % 10/27/17 Unknown Blast Cells % 0 % 10/27/17 Unknown Nucleated RBC % Not Reportable 10/27/17 Unknown Seg Neutrophils # 6.7 K/mm3 (1.8-7.7) 10/30/17 07:01 Seg Neutrophils # Man 13.6 K/mm3 (1.8-7.7) H 10/27/17 Unknown Band Neutrophils # 0.0 K/mm3 10/27/17 Unknown Lymphocytes # (Manual) 0.9 K/mm3 (1.2-5.4) L 10/27/17 Unknown Abs React Lymphs (Man) 0.0 K/mm3 10/27/17 Unknown Monocytes # (Manual) 0.8 K/mm3 (0.0-0.8) 10/27/17 Unknown Eosinophils # (Manual) 0.0 K/mm3 (0.0-0.4) 10/27/17 Unknown Basophils # (Manual) 0.0 K/mm3 (0.0-0.1) 10/27/17 Unknown Metamyelocytes # 0.0 K/mm3 10/27/17 Unknown Myelocytes # 0.0 K/mm3 10/27/17 Unknown Promyelocytes # 0.0 K/mm3 10/27/17 Unknown Blast Cells # 0.0 K/mm3 10/27/17 Unknown WBC Morphology Not Reportable 10/27/17 Unknown Hypersegmented Neuts Not Reportable 10/27/17 Unknown Hyposegmented Neuts Not Reportable 10/27/17 Unknown Hypogranular Neuts Not Reportable 10/27/17 Unknown Smudge Cells Not Reportable 10/27/17 Unknown Toxic Granulation Not Reportable 10/27/17 Unknown Toxic Vacuolation Not Reportable 10/27/17 Unknown Dohle Bodies Not Reportable 10/27/17 Unknown Pelger-Huet Anomaly Not Reportable 10/27/17 Unknown Elina Rods Not Reportable 10/27/17 Unknown Platelet Estimate Appears normal 10/27/17 Unknown Clumped Platelets Not Reportable 10/27/17 Unknown Plt Clumps, EDTA Not Reportable 10/27/17 Unknown Large Platelets Not Reportable 10/27/17 Unknown Giant Platelets Not Reportable 10/27/17 Unknown Platelet Satelliting Not Reportable 10/27/17 Unknown Plt Morphology Comment Not Reportable 10/27/17 Unknown RBC Morphology Not Reportable 10/27/17 Unknown Dimorphic RBCs Not Reportable 10/27/17 Unknown Polychromasia Not Reportable 10/27/17 Unknown Hypochromasia Not Reportable 10/27/17 Unknown Poikilocytosis Not Reportable 10/27/17 Unknown Anisocytosis Few 10/27/17 Unknown Microcytosis Not Reportable 10/27/17 Unknown Macrocytosis Not Reportable 10/27/17 Unknown Spherocytes Not Reportable 10/27/17 Unknown Pappenheimer Bodies Not Reportable 10/27/17 Unknown Sickle Cells Not Reportable 10/27/17 Unknown Target Cells 1+ 10/27/17 Unknown Tear Drop Cells Not Reportable 10/27/17 Unknown Ovalocytes Not Reportable 10/27/17 Unknown Helmet Cells Not Reportable 10/27/17 Unknown [place] Bodies Not Reportable 10/27/17 Unknown [place] Rings Not Reportable 10/27/17 Unknown [place] Cells Not Reportable 10/27/17 Unknown Bite Cells Not Reportable 10/27/17 Unknown Crenated Cell Not Reportable 10/27/17 Unknown Elliptocytes Not Reportable 10/27/17 Unknown Acanthocytes (Spur) Not Reportable 10/27/17 Unknown Rouleaux Not Reportable 10/27/17 Unknown Hemoglobin C Crystals Not Reportable 10/27/17 Unknown Schistocytes Not Reportable 10/27/17 Unknown Malaria parasites Not Reportable 10/27/17 Unknown [place] Bodies Not Reportable 10/27/17 Unknown Hem Pathologist Commnt No 10/27/17 Unknown PT 15.8 Sec. (12.2-14.9) H 10/27/17 Unknown INR 1.19 (0.87-1.13) H 10/27/17 Unknown APTT 27.8 Sec. (24.2-36.6) 10/27/17 Unknown Sodium 150 mmol/L (137-145) H 11/01/17 10:40 Potassium 3.0 mmol/L (3.6-5.0) L 11/01/17 10:40 Chloride 114.7 mmol/L (98-107) H 11/01/17 10:40 Carbon Dioxide 24 mmol/L (22-30) 11/01/17 10:40 Anion Gap 14 mmol/L 11/01/17 10:40 BUN 8 mg/dL (9-20) L 11/01/17 10:40 Creatinine 1.4 mg/dL (0.8-1.5) 11/01/17 10:40 Estimated GFR > 60 ml/min 11/01/17 10:40 BUN/Creatinine Ratio 6 % 11/01/17 10:40 Glucose 89 mg/dL (75-100) 11/01/17 10:40 POC Glucose 96 (70-105) 11/01/17 12:50 Lactic Acid 0.90 mmol/L (0.7-2.0) 10/27/17 Unknown Calcium 8.7 mg/dL (8.4-10.2) 11/01/17 10:40 Phosphorus 3.00 mg/dL (2.5-4.5) D 10/31/17 04:30 Magnesium 1.90 mg/dL (1.7-2.3) 10/31/17 04:30 Total Bilirubin 0.60 mg/dL (0.1-1.2) 10/29/17 04:49 AST 41 units/L (5-40) H 10/29/17 04:49 ALT 39 units/L (7-56) 10/29/17 04:49 Alkaline Phosphatase 406 units/L (35-129) H 10/29/17 04:49 Total Creatine Kinase 43 units/L (55-170) L 10/27/17 Unknown Total Protein 6.2 g/dL (6.3-8.2) L 10/29/17 04:49 Albumin 2.9 g/dL (3.9-5) L 10/29/17 04:49 Albumin/Globulin Ratio 0.9 % 10/29/17 04:49 Lipase 73 units/L (13-60) H 10/27/17 21:56 Blood Type A POSITIVE 10/27/17 Unknown Antibody Screen Negative 10/27/17 Unknown
--- NOTE | 2017-11-01 14:32 | XRay Report ---
ABDOMEN, 2 views: History: Ileus. Gas-filled loops with air-fluid levels in the abdomen have significantly improved since the abdominal series performed 3 days ago. A few small air-fluid levels persist in the lower abdomen. Metallic foreign bodies and surgical clips are unchanged. The lung bases are clear. IMPRESSION: Near resolution of the ileus since the exam 3 days ago.
[2017-11-01] MEDS: D5W/0.45% NACL/KCL 20 MEQ 20 MEQ/1,000 ML BAG IV SCH (18:10)
[2017-11-01] MEDS: MILK OF MAGNESIA PO PRN (23:35)
[2017-11-02] MEDS: NORCO 5/325 PO PRN ×2 (01:56→08:26)
[2017-11-02] MEDS: DILAUDID IV PRN ×3 (05:15→18:04)
[2017-11-02] MEDS: ZOFRAN IV PRN (05:15)
[2017-11-02] MEDS: D5W/0.45% NACL/KCL 20 MEQ 20 MEQ/1,000 ML BAG IV SCH (05:18)
[2017-11-02 06:18] LABS: Hemoglobin 9.7 gm/dl (11.8-15.2); Mean Corpuscular HGB Conc 34 % (32-34); Mean Corpuscular Hemoglobin 30 pg (28-32); Mean Corpuscular Volume 89 fl (84-94); Platelet Count 333 K/mm3 (140-440); Red Blood Count 3.25 M/mm3 (3.65-5.03); Red Cell Distribution Width 17.3 % (13.2-15.2)
[2017-11-02 06:48] LABS: BUN/Creatinine Ratio 6; Blood Urea Nitrogen 8 mg/dL (9-20); Calcium 8.7 mg/dL (8.4-10.2); Hemolysis Index 3
[2017-11-02] MEDS: HumaLOG SUB-Q SCH ×3 (08:20→21:16)
[2017-11-02] MEDS: MILK OF MAGNESIA PO PRN (08:26)
[2017-11-02] MEDS: K-DUR PO SCH (09:52)
[2017-11-02] MEDS: PROTONIX PO SCH (09:52)
[2017-11-02] MEDS: LOVENOX SUB-Q SCH (09:56)
--- NOTE | 2017-11-02 10:32 | Progress Note ---
Assessment and Plan Assessment and plan: 42-year-old male patient incarcerated from senior living system with history of small gut syndrome Was admitted through emergency room with abdominal pain, noted to have colonic ileus Symptomatically managed, evaluated by surgery, recommend rectal tube and TPN, patient refused --Abdominal/colonic ileus; Supportive care IV fluids, Closely monitor, abdominal series reviewed, surgery evaluated the patient , recommend Rectal tube , TPN , nutrition consult pending , patient refused rectal tube Continue soft diet as tolerated --Severe hypokalemia; Potassium 3.5 today. Continue iv fluid to D5W with Potassium, recheck in am --Hypo-phosphatemia; replaced per protocol --Metabolic acidosis; Vigorous IV hydration and closely monitor levels --Type 2 diabetes mellitus; Accu-Chek sliding scale coverage and insulin as needed --Short gut syndrome; supportive care, --Moderate malnutrition/hypoalbuminemia; continue supportive care and nutritional supplements as needed --DVT prophylaxis with Lovenox Closely monitor the patient and adjust management as needed Disposition; may be discharged home in few days once Colonic ileus improves To start TPN. 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, no focal neurological signs - Constitutional Vitals: Temp Pulse Resp BP Pulse Ox 97.7 F 65 16 104/72 100 11/01/17 21:55 11/01/17 21:55 11/01/17 21:55 11/01/17 21:55 11/01/17 21:55 General appearance: Present: no acute distress, cachectic Results - Labs CBC & Chem 7: 11/03/17 05:35 11/03/17 05:35 Labs: Laboratory Last Values WBC 9.9 K/mm3 (4.5-11.0) 11/02/17 05:25 RBC 3.25 M/mm3 (3.65-5.03) L 11/02/17 05:25 Hgb 9.7 gm/dl (11.8-15.2) L 11/02/17 05:25 Hct 29.0 % (35.5-45.6) L 11/02/17 05:25 MCV 89 fl (84-94) 11/02/17 05:25 MCH 30 pg (28-32) 11/02/17 05:25 MCHC 34 % (32-34) 11/02/17 05:25 RDW 17.3 % (13.2-15.2) H 11/02/17 05:25 Plt Count 333 K/mm3 (140-440) 11/02/17 05:25 Lymph % (Auto) 15.4 % (13.4-35.0) 10/30/17 07:01 [place] % (Auto) 15.3 % (0.0-7.3) H 10/30/17 07:01 Eos % (Auto) 1.6 % (0.0-4.3) 10/30/17 07:01 Baso % (Auto) 0.8 % (0.0-1.8) 10/30/17 07:01 Lymph # 1.5 K/mm3 (1.2-5.4) 10/30/17 07:01 [place] # 1.5 K/mm3 (0.0-0.8) H 10/30/17 07:01 Eos # 0.2 K/mm3 (0.0-0.4) 10/30/17 07:01 Baso # 0.1 K/mm3 (0.0-0.1) 10/30/17 07:01 Add Manual Diff Complete 10/27/17 Unknown Total Counted 100 10/27/17 Unknown Seg Neutrophils % 66.9 % (40.0-70.0) 10/30/17 07:01 Seg Neuts % (Manual) 89.0 % (40.0-70.0) H 10/27/17 Unknown Band Neutrophils % 0 % 10/27/17 Unknown Lymphocytes % (Manual) 6.0 % (13.4-35.0) L 10/27/17 Unknown Reactive Lymphs % (Man) 0 % 10/27/17 Unknown Monocytes % (Manual) 5.0 % (0.0-7.3) 10/27/17 Unknown Eosinophils % (Manual) 0 % (0.0-4.3) 10/27/17 Unknown Basophils % (Manual) 0 % (0.0-1.8) 10/27/17 Unknown Metamyelocytes % 0 % 10/27/17 Unknown Myelocytes % 0 % 10/27/17 Unknown Promyelocytes % 0 % 10/27/17 Unknown Blast Cells % 0 % 10/27/17 Unknown Nucleated RBC % Not Reportable 10/27/17 Unknown Seg Neutrophils # 6.7 K/mm3 (1.8-7.7) 10/30/17 07:01 Seg Neutrophils # Man 13.6 K/mm3 (1.8-7.7) H 10/27/17 Unknown Band Neutrophils # 0.0 K/mm3 10/27/17 Unknown Lymphocytes # (Manual) 0.9 K/mm3 (1.2-5.4) L 10/27/17 Unknown Abs React Lymphs (Man) 0.0 K/mm3 10/27/17 Unknown Monocytes # (Manual) 0.8 K/mm3 (0.0-0.8) 10/27/17 Unknown Eosinophils # (Manual) 0.0 K/mm3 (0.0-0.4) 10/27/17 Unknown Basophils # (Manual) 0.0 K/mm3 (0.0-0.1) 10/27/17 Unknown Metamyelocytes # 0.0 K/mm3 10/27/17 Unknown Myelocytes # 0.0 K/mm3 10/27/17 Unknown Promyelocytes # 0.0 K/mm3 10/27/17 Unknown Blast Cells # 0.0 K/mm3 10/27/17 Unknown WBC Morphology Not Reportable 10/27/17 Unknown Hypersegmented Neuts Not Reportable 10/27/17 Unknown Hyposegmented Neuts Not Reportable 10/27/17 Unknown Hypogranular Neuts Not Reportable 10/27/17 Unknown Smudge Cells Not Reportable 10/27/17 Unknown Toxic Granulation Not Reportable 10/27/17 Unknown Toxic Vacuolation Not Reportable 10/27/17 Unknown Dohle Bodies Not Reportable 10/27/17 Unknown Pelger-Huet Anomaly Not Reportable 10/27/17 Unknown Elina Rods Not Reportable 10/27/17 Unknown Platelet Estimate Appears normal 10/27/17 Unknown Clumped Platelets Not Reportable 10/27/17 Unknown Plt Clumps, EDTA Not Reportable 10/27/17 Unknown Large Platelets Not Reportable 10/27/17 Unknown Giant Platelets Not Reportable 10/27/17 Unknown Platelet Satelliting Not Reportable 10/27/17 Unknown Plt Morphology Comment Not Reportable 10/27/17 Unknown RBC Morphology Not Reportable 10/27/17 Unknown Dimorphic RBCs Not Reportable 10/27/17 Unknown Polychromasia Not Reportable 10/27/17 Unknown Hypochromasia Not Reportable 10/27/17 Unknown Poikilocytosis Not Reportable 10/27/17 Unknown Anisocytosis Few 10/27/17 Unknown Microcytosis Not Reportable 10/27/17 Unknown Macrocytosis Not Reportable 10/27/17 Unknown Spherocytes Not Reportable 10/27/17 Unknown Pappenheimer Bodies Not Reportable 10/27/17 Unknown Sickle Cells Not Reportable 10/27/17 Unknown Target Cells 1+ 10/27/17 Unknown Tear Drop Cells Not Reportable 10/27/17 Unknown Ovalocytes Not Reportable 10/27/17 Unknown Helmet Cells Not Reportable 10/27/17 Unknown Gray-[place] Bodies Not Reportable 10/27/17 Unknown [place] Rings Not Reportable 10/27/17 Unknown Eduardo Cells Not Reportable 10/27/17 Unknown Bite Cells Not Reportable 10/27/17 Unknown Crenated Cell Not Reportable 10/27/17 Unknown Elliptocytes Not Reportable 10/27/17 Unknown Acanthocytes (Spur) Not Reportable 10/27/17 Unknown Rouleaux Not Reportable 10/27/17 Unknown Hemoglobin C Crystals Not Reportable 10/27/17 Unknown Schistocytes Not Reportable 10/27/17 Unknown Malaria parasites Not Reportable 10/27/17 Unknown [place] Bodies Not Reportable 10/27/17 Unknown Hem Pathologist Commnt No 10/27/17 Unknown PT 15.8 Sec. (12.2-14.9) H 10/27/17 Unknown INR 1.19 (0.87-1.13) H 10/27/17 Unknown APTT 27.8 Sec. (24.2-36.6) 10/27/17 Unknown Sodium 149 mmol/L (137-145) H 11/02/17 05:25 Potassium 3.5 mmol/L (3.6-5.0) L 11/02/17 05:25 Chloride 113.0 mmol/L (98-107) H 11/02/17 05:25 Carbon Dioxide 19 mmol/L (22-30) L 11/02/17 05:25 Anion Gap 21 mmol/L 11/02/17 05:25 BUN 8 mg/dL (9-20) L 11/02/17 05:25 Creatinine 1.4 mg/dL (0.8-1.5) 11/02/17 05:25 Estimated GFR > 60 ml/min 11/02/17 05:25 BUN/Creatinine Ratio 6 % 11/02/17 05:25 Glucose 94 mg/dL (75-100) 11/02/17 05:25 POC Glucose 109 (70-105) H 11/01/17 21:53 Lactic Acid 0.90 mmol/L (0.7-2.0) 10/27/17 Unknown Calcium 8.7 mg/dL (8.4-10.2) 11/02/17 05:25 Phosphorus 3.00 mg/dL (2.5-4.5) D 10/31/17 04:30 Magnesium 1.90 mg/dL (1.7-2.3) 10/31/17 04:30 Total Bilirubin 0.60 mg/dL (0.1-1.2) 10/29/17 04:49 AST 41 units/L (5-40) H 10/29/17 04:49 ALT 39 units/L (7-56) 10/29/17 04:49 Alkaline Phosphatase 406 units/L (35-129) H 10/29/17 04:49 Total Creatine Kinase 43 units/L (55-170) L 10/27/17 Unknown Total Protein 6.2 g/dL (6.3-8.2) L 10/29/17 04:49 Albumin 2.9 g/dL (3.9-5) L 10/29/17 04:49 Albumin/Globulin Ratio 0.9 % 10/29/17 04:49 Lipase 73 units/L (13-60) H 10/27/17 21:56 Blood Type A POSITIVE 10/27/17 Unknown Antibody Screen Negative 10/27/17 Unknown
[2017-11-02] MEDS ORDERED: TPN ADULT 2,016 ML IV SCH (20:00)
[2017-11-02] MEDS: SODIUM CHLORIDE FLUSH SYRINGE 10 ML IV SCH (21:15)
[2017-11-03] MEDS: DILAUDID IV PRN ×4 (02:12→20:01)
[2017-11-03 05:49] LABS: Hematocrit 28.9 % (35.5-45.6); Hemoglobin 9.8 gm/dl (11.8-15.2); Mean Corpuscular HGB Conc 34 % (32-34); Mean Corpuscular Hemoglobin 30 pg (28-32); Mean Corpuscular Volume 89 fl (84-94); Platelet Count 322 K/mm3 (140-440); Red Blood Count 3.26 M/mm3 (3.65-5.03); Red Cell Distribution Width 16.9 % (13.2-15.2)
[2017-11-03 06:13] LABS: BUN/Creatinine Ratio 8; Blood Urea Nitrogen 9 mg/dL (9-20); Calcium 7.5 mg/dL (8.4-10.2); Hemolysis Index 1
[2017-11-03] MEDS: HumaLOG SUB-Q SCH ×4 (08:00→23:42)
[2017-11-03] MEDS: LOVENOX SUB-Q SCH (10:00)
[2017-11-03] MEDS: K-DUR PO SCH ×2 (11:45→21:40)
[2017-11-03] MEDS: PROTONIX PO SCH (11:45)
--- NOTE | 2017-11-03 19:01 | Progress Note ---
Assessment and Plan Assessment and plan: 42-year-old male patient incarcerated from longterm system with history of small gut syndrome Was admitted through emergency room with abdominal pain, noted to have colonic ileus Symptomatically managed, evaluated by surgery, recommend rectal tube and TPN, patient refused --Abdominal/colonic ileus; now almost resolved Supportive care IV fluids, Closely monitor, abdominal series reviewed, surgery evaluated the patient , recommend Rectal tube , TPN , nutrition consult pending , patient refused rectal tube Continue soft diet as tolerated Started TPN yesterday 11/02 --Severe hypokalemia; Potassium 3.0 today. Dietitian to arrange TPN contents --Hypo-phosphatemia; replaced per protocol --Metabolic acidosis; Vigorous IV hydration and closely monitor levels --Type 2 diabetes mellitus; Accu-Chek sliding scale coverage and insulin as needed --Short gut syndrome; supportive care, --Moderate malnutrition/hypoalbuminemia; continue supportive care and nutritional supplements as needed --DVT prophylaxis with Lovenox Closely monitor the patient and adjust management as needed Disposition; may be discharged home in few days once Na normal and TPN arranged Discussed with case management to arrange TPN History Interval history: feels better, less abdominal pain Hospitalist Physical - Physical exam Narrative exam: Constitutional; Not in acute distress, ill looking, malnourished HEENT: Atraumatic, normocephalic Neck: supple, no lymphadenopathy, JVD Lungs: Clear to auscultation, bilaterally, no wheeze CVS; S1-S2 regular, no murmurs, rubs or gallop, Abdomen; soft, non-tender, mild distended,bowel sounds are normal, Musculoskeletal; No edema, no clubbing, no 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, 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, 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,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, no focal neurological signs - Constitutional Vitals: Temp Pulse Resp BP Pulse Ox 98.6 F 93 H 16 96/68 100 11/03/17 11:12 11/03/17 11:12 11/03/17 11:12 11/03/17 11:12 11/03/17 11:12 General appearance: Present: no acute distress, cachectic Results - Labs CBC & Chem 7: 11/03/17 05:35 11/03/17 05:35 Labs: Laboratory Last Values WBC 10.1 K/mm3 (4.5-11.0) 11/03/17 05:35 RBC 3.26 M/mm3 (3.65-5.03) L 11/03/17 05:35 Hgb 9.8 gm/dl (11.8-15.2) L 11/03/17 05:35 Hct 28.9 % (35.5-45.6) L 11/03/17 05:35 MCV 89 fl (84-94) 11/03/17 05:35 MCH 30 pg (28-32) 11/03/17 05:35 MCHC 34 % (32-34) 11/03/17 05:35 RDW 16.9 % (13.2-15.2) H 11/03/17 05:35 Plt Count 322 K/mm3 (140-440) 11/03/17 05:35 Lymph % (Auto) 15.4 % (13.4-35.0) 10/30/17 07:01 [place] % (Auto) 15.3 % (0.0-7.3) H 10/30/17 07:01 Eos % (Auto) 1.6 % (0.0-4.3) 10/30/17 07:01 Baso % (Auto) 0.8 % (0.0-1.8) 10/30/17 07:01 Lymph # 1.5 K/mm3 (1.2-5.4) 10/30/17 07:01 [place] # 1.5 K/mm3 (0.0-0.8) H 10/30/17 07:01 Eos # 0.2 K/mm3 (0.0-0.4) 10/30/17 07:01 Baso # 0.1 K/mm3 (0.0-0.1) 10/30/17 07:01 Add Manual Diff Complete 10/27/17 Unknown Total Counted 100 10/27/17 Unknown Seg Neutrophils % 66.9 % (40.0-70.0) 10/30/17 07:01 Seg Neuts % (Manual) 89.0 % (40.0-70.0) H 10/27/17 Unknown Band Neutrophils % 0 % 10/27/17 Unknown Lymphocytes % (Manual) 6.0 % (13.4-35.0) L 10/27/17 Unknown Reactive Lymphs % (Man) 0 % 10/27/17 Unknown Monocytes % (Manual) 5.0 % (0.0-7.3) 10/27/17 Unknown Eosinophils % (Manual) 0 % (0.0-4.3) 10/27/17 Unknown Basophils % (Manual) 0 % (0.0-1.8) 10/27/17 Unknown Metamyelocytes % 0 % 10/27/17 Unknown Myelocytes % 0 % 10/27/17 Unknown Promyelocytes % 0 % 10/27/17 Unknown Blast Cells % 0 % 10/27/17 Unknown Nucleated RBC % Not Reportable 10/27/17 Unknown Seg Neutrophils # 6.7 K/mm3 (1.8-7.7) 10/30/17 07:01 Seg Neutrophils # Man 13.6 K/mm3 (1.8-7.7) H 10/27/17 Unknown Band Neutrophils # 0.0 K/mm3 10/27/17 Unknown Lymphocytes # (Manual) 0.9 K/mm3 (1.2-5.4) L 10/27/17 Unknown Abs React Lymphs (Man) 0.0 K/mm3 10/27/17 Unknown Monocytes # (Manual) 0.8 K/mm3 (0.0-0.8) 10/27/17 Unknown Eosinophils # (Manual) 0.0 K/mm3 (0.0-0.4) 10/27/17 Unknown Basophils # (Manual) 0.0 K/mm3 (0.0-0.1) 10/27/17 Unknown Metamyelocytes # 0.0 K/mm3 10/27/17 Unknown Myelocytes # 0.0 K/mm3 10/27/17 Unknown Promyelocytes # 0.0 K/mm3 10/27/17 Unknown Blast Cells # 0.0 K/mm3 10/27/17 Unknown WBC Morphology Not Reportable 10/27/17 Unknown Hypersegmented Neuts Not Reportable 10/27/17 Unknown Hyposegmented Neuts Not Reportable 10/27/17 Unknown Hypogranular Neuts Not Reportable 10/27/17 Unknown Smudge Cells Not Reportable 10/27/17 Unknown Toxic Granulation Not Reportable 10/27/17 Unknown Toxic Vacuolation Not Reportable 10/27/17 Unknown Dohle Bodies Not Reportable 10/27/17 Unknown Pelger-Huet Anomaly Not Reportable 10/27/17 Unknown Elina Rods Not Reportable 10/27/17 Unknown Platelet Estimate Appears normal 10/27/17 Unknown Clumped Platelets Not Reportable 10/27/17 Unknown Plt Clumps, EDTA Not Reportable 10/27/17 Unknown Large Platelets Not Reportable 10/27/17 Unknown Giant Platelets Not Reportable 10/27/17 Unknown Platelet Satelliting Not Reportable 10/27/17 Unknown Plt Morphology Comment Not Reportable 10/27/17 Unknown RBC Morphology Not Reportable 10/27/17 Unknown Dimorphic RBCs Not Reportable 10/27/17 Unknown Polychromasia Not Reportable 10/27/17 Unknown Hypochromasia Not Reportable 10/27/17 Unknown Poikilocytosis Not Reportable 10/27/17 Unknown Anisocytosis Few 10/27/17 Unknown Microcytosis Not Reportable 10/27/17 Unknown Macrocytosis Not Reportable 10/27/17 Unknown Spherocytes Not Reportable 10/27/17 Unknown Pappenheimer Bodies Not Reportable 10/27/17 Unknown Sickle Cells Not Reportable 10/27/17 Unknown Target Cells 1+ 10/27/17 Unknown Tear Drop Cells Not Reportable 10/27/17 Unknown Ovalocytes Not Reportable 10/27/17 Unknown Helmet Cells Not Reportable 10/27/17 Unknown [place] Bodies Not Reportable 10/27/17 Unknown [place] Rings Not Reportable 10/27/17 Unknown Eduardo Cells Not Reportable 10/27/17 Unknown Bite Cells Not Reportable 10/27/17 Unknown Crenated Cell Not Reportable 10/27/17 Unknown Elliptocytes Not Reportable 10/27/17 Unknown Acanthocytes (Spur) Not Reportable 10/27/17 Unknown Rouleaux Not Reportable 10/27/17 Unknown Hemoglobin C Crystals Not Reportable 10/27/17 Unknown Schistocytes Not Reportable 10/27/17 Unknown Malaria parasites Not Reportable 10/27/17 Unknown [place] Bodies Not Reportable 10/27/17 Unknown Hem Pathologist Commnt No 10/27/17 Unknown PT 15.8 Sec. (12.2-14.9) H 10/27/17 Unknown INR 1.19 (0.87-1.13) H 10/27/17 Unknown APTT 27.8 Sec. (24.2-36.6) 10/27/17 Unknown Sodium 150 mmol/L (137-145) H 11/03/17 05:35 Potassium 3.0 mmol/L (3.6-5.0) L 11/03/17 05:35 Chloride 117.2 mmol/L (98-107) H 11/03/17 05:35 Carbon Dioxide 20 mmol/L (22-30) L 11/03/17 05:35 Anion Gap 16 mmol/L 11/03/17 05:35 BUN 9 mg/dL (9-20) 11/03/17 05:35 Creatinine 1.2 mg/dL (0.8-1.5) 11/03/17 05:35 Estimated GFR > 60 ml/min 11/03/17 05:35 BUN/Creatinine Ratio 8 % 11/03/17 05:35 Glucose 113 mg/dL (75-100) H 11/03/17 05:35 POC Glucose 142 (70-105) H 11/03/17 16:26 Lactic Acid 0.90 mmol/L (0.7-2.0) 10/27/17 Unknown Calcium 7.5 mg/dL (8.4-10.2) L 11/03/17 05:35 Phosphorus 2.50 mg/dL (2.5-4.5) 11/03/17 05:35 Magnesium 1.80 mg/dL (1.7-2.3) 11/03/17 05:35 Total Bilirubin 0.60 mg/dL (0.1-1.2) 10/29/17 04:49 AST 41 units/L (5-40) H 10/29/17 04:49 ALT 39 units/L (7-56) 10/29/17 04:49 Alkaline Phosphatase 406 units/L (35-129) H 10/29/17 04:49 Total Creatine Kinase 43 units/L (55-170) L 10/27/17 Unknown Total Protein 6.2 g/dL (6.3-8.2) L 10/29/17 04:49 Albumin 2.9 g/dL (3.9-5) L 10/29/17 04:49 Albumin/Globulin Ratio 0.9 % 10/29/17 04:49 Lipase 73 units/L (13-60) H 10/27/17 21:56 Blood Type A POSITIVE 10/27/17 Unknown Antibody Screen Negative 10/27/17 Unknown
[2017-11-03] MEDS ORDERED: TPN ADULT 2,016 ML IV SCH (20:00)
[2017-11-03] MEDS: SODIUM CHLORIDE FLUSH SYRINGE 10 ML IV PRN (21:45)
[2017-11-03] MEDS: SODIUM CHLORIDE FLUSH SYRINGE 10 ML IV SCH ×2 (21:46→21:47)
[2017-11-04] MEDS: DILAUDID IV PRN ×5 (02:12→21:50)
[2017-11-04] MEDS: SODIUM CHLORIDE FLUSH SYRINGE 10 ML IV SCH ×3 (02:18→22:00)
[2017-11-04 05:47] LABS: Hematocrit 30.5 % (35.5-45.6); Hemoglobin 10.1 gm/dl (11.8-15.2); Mean Corpuscular HGB Conc 33 % (32-34); Mean Corpuscular Hemoglobin 30 pg (28-32); Mean Corpuscular Volume 89 fl (84-94); Platelet Count 309 K/mm3 (140-440); Red Blood Count 3.42 M/mm3 (3.65-5.03)
[2017-11-04 06:14] LABS: Alanine Aminotransferase 48 units/L (7-56); Albumin 3.7 g/dL (3.9-5); BUN/Creatinine Ratio 15; Blood Urea Nitrogen 21 mg/dL (9-20); Hemolysis Index 1
[2017-11-04] MEDS: LOVENOX SUB-Q SCH ×2 (08:20→10:00)
[2017-11-04] MEDS: K-DUR PO SCH ×3 (08:20→21:56)
[2017-11-04] MEDS: PROTONIX PO SCH ×2 (08:21→10:00)
[2017-11-04] MEDS: HumaLOG SUB-Q SCH ×4 (08:24→22:00)
--- NOTE | 2017-11-04 12:07 | Progress Note ---
Assessment and Plan Assessment and plan: 42-year-old male patient incarcerated from [facility] system with history of small gut syndrome Was admitted through emergency room with abdominal pain, noted to have colonic ileus Symptomatically managed, evaluated by surgery, recommend rectal tube and TPN, patient refused Abdominal/colonic ileus; now almost resolved Supportive care IV fluids, Closely monitor, abdominal series reviewed, surgery evaluated the patient , recommend Rectal tube , TPN , nutrition consult pending , patient refused rectal tube Continue soft diet as tolerated Started TPN yesterday 11/02 --Severe hypokalemia; Potassium 4.0 today. Dietitian to arrange TPN contents Hypo-phosphatemia; replaced per protocol Metabolic acidosis; Vigorous IV hydration and closely monitor levels Type 2 diabetes mellitus; Accu-Chek sliding scale coverage and insulin as needed Short gut syndrome; supportive care, Severe protein energy malnutrition with . continue supportive care and nutritional supplements as needed DVT prophylaxis with Lovenox Closely monitor the patient and adjust management as needed Disposition; may be discharged home in few days once Na normal and TPN arranged Discussed with case management to arrange TPN History Interval history: feels better, still complain of abdominal pain Hospitalist Physical - Physical exam Narrative exam: Constitutional; Not in acute distress, ill looking, malnourished HEENT: Atraumatic, normocephalic Neck: supple, no lymphadenopathy, JVD Lungs: Clear to auscultation, bilaterally, no wheeze CVS; S1-S2 regular, no murmurs, rubs or gallop, Abdomen; soft, non-tender, mild distended,bowel sounds are normal, Musculoskeletal; No edema, no clubbing, no 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, 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, 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,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, no focal neurological signs - Constitutional Vitals: Temp Pulse Resp BP Pulse Ox 97.9 F 109 H 18 100/77 99 11/04/17 11:26 11/04/17 11:26 11/04/17 11:26 11/04/17 11:26 11/04/17 11:26 General appearance: Present: no acute distress, cachectic Results - Labs CBC & Chem 7: 11/04/17 05:20 11/04/17 05:20 Labs: Laboratory Last Values WBC 10.7 K/mm3 (4.5-11.0) 11/04/17 05:20 RBC 3.42 M/mm3 (3.65-5.03) L 11/04/17 05:20 Hgb 10.1 gm/dl (11.8-15.2) L 11/04/17 05:20 Hct 30.5 % (35.5-45.6) L 11/04/17 05:20 MCV 89 fl (84-94) 11/04/17 05:20 MCH 30 pg (28-32) 11/04/17 05:20 MCHC 33 % (32-34) 11/04/17 05:20 RDW 17.0 % (13.2-15.2) H 11/04/17 05:20 Plt Count 309 K/mm3 (140-440) 11/04/17 05:20 Lymph % (Auto) 15.4 % (13.4-35.0) 10/30/17 07:01 [place] % (Auto) 15.3 % (0.0-7.3) H 10/30/17 07:01 Eos % (Auto) 1.6 % (0.0-4.3) 10/30/17 07:01 Baso % (Auto) 0.8 % (0.0-1.8) 10/30/17 07:01 Lymph # 1.5 K/mm3 (1.2-5.4) 10/30/17 07:01 [place] # 1.5 K/mm3 (0.0-0.8) H 10/30/17 07:01 Eos # 0.2 K/mm3 (0.0-0.4) 10/30/17 07:01 Baso # 0.1 K/mm3 (0.0-0.1) 10/30/17 07:01 Add Manual Diff Complete 10/27/17 Unknown Total Counted 100 10/27/17 Unknown Seg Neutrophils % 66.9 % (40.0-70.0) 10/30/17 07:01 Seg Neuts % (Manual) 89.0 % (40.0-70.0) H 10/27/17 Unknown Band Neutrophils % 0 % 10/27/17 Unknown Lymphocytes % (Manual) 6.0 % (13.4-35.0) L 10/27/17 Unknown Reactive Lymphs % (Man) 0 % 10/27/17 Unknown Monocytes % (Manual) 5.0 % (0.0-7.3) 10/27/17 Unknown Eosinophils % (Manual) 0 % (0.0-4.3) 10/27/17 Unknown Basophils % (Manual) 0 % (0.0-1.8) 10/27/17 Unknown Metamyelocytes % 0 % 10/27/17 Unknown Myelocytes % 0 % 10/27/17 Unknown Promyelocytes % 0 % 10/27/17 Unknown Blast Cells % 0 % 10/27/17 Unknown Nucleated RBC % Not Reportable 10/27/17 Unknown Seg Neutrophils # 6.7 K/mm3 (1.8-7.7) 10/30/17 07:01 Seg Neutrophils # Man 13.6 K/mm3 (1.8-7.7) H 10/27/17 Unknown Band Neutrophils # 0.0 K/mm3 10/27/17 Unknown Lymphocytes # (Manual) 0.9 K/mm3 (1.2-5.4) L 10/27/17 Unknown Abs React Lymphs (Man) 0.0 K/mm3 10/27/17 Unknown Monocytes # (Manual) 0.8 K/mm3 (0.0-0.8) 10/27/17 Unknown Eosinophils # (Manual) 0.0 K/mm3 (0.0-0.4) 10/27/17 Unknown Basophils # (Manual) 0.0 K/mm3 (0.0-0.1) 10/27/17 Unknown Metamyelocytes # 0.0 K/mm3 10/27/17 Unknown Myelocytes # 0.0 K/mm3 10/27/17 Unknown Promyelocytes # 0.0 K/mm3 10/27/17 Unknown Blast Cells # 0.0 K/mm3 10/27/17 Unknown WBC Morphology Not Reportable 10/27/17 Unknown Hypersegmented Neuts Not Reportable 10/27/17 Unknown Hyposegmented Neuts Not Reportable 10/27/17 Unknown Hypogranular Neuts Not Reportable 10/27/17 Unknown Smudge Cells Not Reportable 10/27/17 Unknown Toxic Granulation Not Reportable 10/27/17 Unknown Toxic Vacuolation Not Reportable 10/27/17 Unknown Dohle Bodies Not Reportable 10/27/17 Unknown Pelger-Huet Anomaly Not Reportable 10/27/17 Unknown Elina Rods Not Reportable 10/27/17 Unknown Platelet Estimate Appears normal 10/27/17 Unknown Clumped Platelets Not Reportable 10/27/17 Unknown Plt Clumps, EDTA Not Reportable 10/27/17 Unknown Large Platelets Not Reportable 10/27/17 Unknown Giant Platelets Not Reportable 10/27/17 Unknown Platelet Satelliting Not Reportable 10/27/17 Unknown Plt Morphology Comment Not Reportable 10/27/17 Unknown RBC Morphology Not Reportable 10/27/17 Unknown Dimorphic RBCs Not Reportable 10/27/17 Unknown Polychromasia Not Reportable 10/27/17 Unknown Hypochromasia Not Reportable 10/27/17 Unknown Poikilocytosis Not Reportable 10/27/17 Unknown Anisocytosis Few 10/27/17 Unknown Microcytosis Not Reportable 10/27/17 Unknown Macrocytosis Not Reportable 10/27/17 Unknown Spherocytes Not Reportable 10/27/17 Unknown Pappenheimer Bodies Not Reportable 10/27/17 Unknown Sickle Cells Not Reportable 10/27/17 Unknown Target Cells 1+ 10/27/17 Unknown Tear Drop Cells Not Reportable 10/27/17 Unknown Ovalocytes Not Reportable 10/27/17 Unknown Helmet Cells Not Reportable 10/27/17 Unknown Gray-[place] Bodies Not Reportable 10/27/17 Unknown [place] Rings Not Reportable 10/27/17 Unknown [place] Cells Not Reportable 10/27/17 Unknown Bite Cells Not Reportable 10/27/17 Unknown Crenated Cell Not Reportable 10/27/17 Unknown Elliptocytes Not Reportable 10/27/17 Unknown Acanthocytes (Spur) Not Reportable 10/27/17 Unknown Rouleaux Not Reportable 10/27/17 Unknown Hemoglobin C Crystals Not Reportable 10/27/17 Unknown Schistocytes Not Reportable 10/27/17 Unknown Malaria parasites Not Reportable 10/27/17 Unknown [place] Bodies Not Reportable 10/27/17 Unknown Hem Pathologist Commnt No 10/27/17 Unknown PT 15.8 Sec. (12.2-14.9) H 10/27/17 Unknown INR 1.19 (0.87-1.13) H 10/27/17 Unknown APTT 27.8 Sec. (24.2-36.6) 10/27/17 Unknown Sodium 146 mmol/L (137-145) H 11/04/17 05:20 Potassium 4.0 mmol/L (3.6-5.0) D 11/04/17 05:20 Chloride 106.3 mmol/L (98-107) 11/04/17 05:20 Carbon Dioxide 25 mmol/L (22-30) 11/04/17 05:20 Anion Gap 19 mmol/L 11/04/17 05:20 BUN 21 mg/dL (9-20) H 11/04/17 05:20 Creatinine 1.4 mg/dL (0.8-1.5) 11/04/17 05:20 Estimated GFR > 60 ml/min 11/04/17 05:20 BUN/Creatinine Ratio 15 % 11/04/17 05:20 Glucose 109 mg/dL (75-100) H 11/04/17 05:20 POC Glucose 129 (70-105) H 11/04/17 11:35 Lactic Acid 0.90 mmol/L (0.7-2.0) 10/27/17 Unknown Calcium 9.0 mg/dL (8.4-10.2) D 11/04/17 05:20 Phosphorus 3.30 mg/dL (2.5-4.5) D 11/04/17 05:20 Magnesium 2.20 mg/dL (1.7-2.3) 11/04/17 05:20 Total Bilirubin 0.60 mg/dL (0.1-1.2) 11/04/17 05:20 AST 29 units/L (5-40) 11/04/17 05:20 ALT 48 units/L (7-56) 11/04/17 05:20 Alkaline Phosphatase 884 units/L (35-129) H 11/04/17 05:20 Total Creatine Kinase 43 units/L (55-170) L 10/27/17 Unknown Total Protein 7.2 g/dL (6.3-8.2) 11/04/17 05:20 Albumin 3.7 g/dL (3.9-5) L 11/04/17 05:20 Albumin/Globulin Ratio 1.1 % 11/04/17 05:20 Lipase 73 units/L (13-60) H 10/27/17 21:56 Blood Type A POSITIVE 10/27/17 Unknown Antibody Screen Negative 10/27/17 Unknown
[2017-11-04] MEDS ORDERED: TPN ADULT 2,016 ML IV SCH (20:00)
[2017-11-05] MEDS: DILAUDID IV PRN ×6 (02:27→22:07)
[2017-11-05 06:39] LABS: BUN/Creatinine Ratio 24; Blood Urea Nitrogen 33 mg/dL (9-20); Calcium 8.8 mg/dL (8.4-10.2); Hemolysis Index 1
[2017-11-05] MEDS: HumaLOG SUB-Q SCH ×4 (08:20→23:19)
[2017-11-05] MEDS: SODIUM CHLORIDE FLUSH SYRINGE 10 ML IV SCH ×2 (09:37→21:08)
[2017-11-05] MEDS: K-DUR PO SCH ×2 (09:38→22:07)
[2017-11-05] MEDS: LOVENOX SUB-Q SCH (09:39)
[2017-11-05] MEDS: PROTONIX PO SCH (09:43)
--- NOTE | 2017-11-05 16:24 | Progress Note ---
Assessment and Plan Assessment and plan: 42-year-old male patient incarcerated from long term system with history of small gut syndrome Was admitted through emergency room with abdominal pain, noted to have colonic ileus Symptomatically managed, evaluated by surgery, recommend rectal tube and TPN, patient refused Abdominal/colonic ileus; now almost resolved Supportive care IV fluids, Closely monitor, abdominal series reviewed, surgery evaluated the patient , recommend Rectal tube , TPN , nutrition consult pending , patient refused rectal tube Continue soft diet as tolerated Started TPN 11/02 --Severe hypokalemia; Potassium 4.0 today. Dietitian to arrange TPN contents Hypo-phosphatemia; replaced per protocol Metabolic acidosis; Vigorous IV hydration and closely monitor levels Type 2 diabetes mellitus; Accu-Chek sliding scale coverage and insulin as needed Short gut syndrome; supportive care, Severe protein energy malnutrition with . continue supportive care and nutritional supplements as needed DVT prophylaxis with Lovenox Closely monitor the patient and adjust management as needed Disposition; may be discharged home in few days once Na normal and TPN arranged Discussed with case management to arrange TPN. 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, no focal neurological signs - Constitutional Vitals: Temp Pulse Resp BP Pulse Ox 98.0 F 89 18 88/64 100 11/05/17 11:57 11/05/17 11:57 11/05/17 11:57 11/05/17 11:57 11/05/17 11:57 General appearance: Present: no acute distress, cachectic Results - Labs CBC & Chem 7: 11/04/17 05:20 11/05/17 05:50 Labs: Laboratory Last Values WBC 10.7 K/mm3 (4.5-11.0) 11/04/17 05:20 RBC 3.42 M/mm3 (3.65-5.03) L 11/04/17 05:20 Hgb 10.1 gm/dl (11.8-15.2) L 11/04/17 05:20 Hct 30.5 % (35.5-45.6) L 11/04/17 05:20 MCV 89 fl (84-94) 11/04/17 05:20 MCH 30 pg (28-32) 11/04/17 05:20 MCHC 33 % (32-34) 11/04/17 05:20 RDW 17.0 % (13.2-15.2) H 11/04/17 05:20 Plt Count 309 K/mm3 (140-440) 11/04/17 05:20 Lymph % (Auto) 15.4 % (13.4-35.0) 10/30/17 07:01 [place] % (Auto) 15.3 % (0.0-7.3) H 10/30/17 07:01 Eos % (Auto) 1.6 % (0.0-4.3) 10/30/17 07:01 Baso % (Auto) 0.8 % (0.0-1.8) 10/30/17 07:01 Lymph # 1.5 K/mm3 (1.2-5.4) 10/30/17 07:01 [place] # 1.5 K/mm3 (0.0-0.8) H 10/30/17 07:01 Eos # 0.2 K/mm3 (0.0-0.4) 10/30/17 07:01 Baso # 0.1 K/mm3 (0.0-0.1) 10/30/17 07:01 Add Manual Diff Complete 10/27/17 Unknown Total Counted 100 10/27/17 Unknown Seg Neutrophils % 66.9 % (40.0-70.0) 10/30/17 07:01 Seg Neuts % (Manual) 89.0 % (40.0-70.0) H 10/27/17 Unknown Band Neutrophils % 0 % 10/27/17 Unknown Lymphocytes % (Manual) 6.0 % (13.4-35.0) L 10/27/17 Unknown Reactive Lymphs % (Man) 0 % 10/27/17 Unknown Monocytes % (Manual) 5.0 % (0.0-7.3) 10/27/17 Unknown Eosinophils % (Manual) 0 % (0.0-4.3) 10/27/17 Unknown Basophils % (Manual) 0 % (0.0-1.8) 10/27/17 Unknown Metamyelocytes % 0 % 10/27/17 Unknown Myelocytes % 0 % 10/27/17 Unknown Promyelocytes % 0 % 10/27/17 Unknown Blast Cells % 0 % 10/27/17 Unknown Nucleated RBC % Not Reportable 10/27/17 Unknown Seg Neutrophils # 6.7 K/mm3 (1.8-7.7) 10/30/17 07:01 Seg Neutrophils # Man 13.6 K/mm3 (1.8-7.7) H 10/27/17 Unknown Band Neutrophils # 0.0 K/mm3 10/27/17 Unknown Lymphocytes # (Manual) 0.9 K/mm3 (1.2-5.4) L 10/27/17 Unknown Abs React Lymphs (Man) 0.0 K/mm3 10/27/17 Unknown Monocytes # (Manual) 0.8 K/mm3 (0.0-0.8) 10/27/17 Unknown Eosinophils # (Manual) 0.0 K/mm3 (0.0-0.4) 10/27/17 Unknown Basophils # (Manual) 0.0 K/mm3 (0.0-0.1) 10/27/17 Unknown Metamyelocytes # 0.0 K/mm3 10/27/17 Unknown Myelocytes # 0.0 K/mm3 10/27/17 Unknown Promyelocytes # 0.0 K/mm3 10/27/17 Unknown Blast Cells # 0.0 K/mm3 10/27/17 Unknown WBC Morphology Not Reportable 10/27/17 Unknown Hypersegmented Neuts Not Reportable 10/27/17 Unknown Hyposegmented Neuts Not Reportable 10/27/17 Unknown Hypogranular Neuts Not Reportable 10/27/17 Unknown Smudge Cells Not Reportable 10/27/17 Unknown Toxic Granulation Not Reportable 10/27/17 Unknown Toxic Vacuolation Not Reportable 10/27/17 Unknown Dohle Bodies Not Reportable 10/27/17 Unknown Pelger-Huet Anomaly Not Reportable 10/27/17 Unknown Elina Rods Not Reportable 10/27/17 Unknown Platelet Estimate Appears normal 10/27/17 Unknown Clumped Platelets Not Reportable 10/27/17 Unknown Plt Clumps, EDTA Not Reportable 10/27/17 Unknown Large Platelets Not Reportable 10/27/17 Unknown Giant Platelets Not Reportable 10/27/17 Unknown Platelet Satelliting Not Reportable 10/27/17 Unknown Plt Morphology Comment Not Reportable 10/27/17 Unknown RBC Morphology Not Reportable 10/27/17 Unknown Dimorphic RBCs Not Reportable 10/27/17 Unknown Polychromasia Not Reportable 10/27/17 Unknown Hypochromasia Not Reportable 10/27/17 Unknown Poikilocytosis Not Reportable 10/27/17 Unknown Anisocytosis Few 10/27/17 Unknown Microcytosis Not Reportable 10/27/17 Unknown Macrocytosis Not Reportable 10/27/17 Unknown Spherocytes Not Reportable 10/27/17 Unknown Pappenheimer Bodies Not Reportable 10/27/17 Unknown Sickle Cells Not Reportable 10/27/17 Unknown Target Cells 1+ 10/27/17 Unknown Tear Drop Cells Not Reportable 10/27/17 Unknown Ovalocytes Not Reportable 10/27/17 Unknown Helmet Cells Not Reportable 10/27/17 Unknown [place] Bodies Not Reportable 10/27/17 Unknown [place] Rings Not Reportable 10/27/17 Unknown Bostic Cells Not Reportable 10/27/17 Unknown Bite Cells Not Reportable 10/27/17 Unknown Crenated Cell Not Reportable 10/27/17 Unknown Elliptocytes Not Reportable 10/27/17 Unknown Acanthocytes (Spur) Not Reportable 10/27/17 Unknown Rouleaux Not Reportable 10/27/17 Unknown Hemoglobin C Crystals Not Reportable 10/27/17 Unknown Schistocytes Not Reportable 10/27/17 Unknown Malaria parasites Not Reportable 10/27/17 Unknown [place] Bodies Not Reportable 10/27/17 Unknown Hem Pathologist Commnt No 10/27/17 Unknown PT 15.8 Sec. (12.2-14.9) H 10/27/17 Unknown INR 1.19 (0.87-1.13) H 10/27/17 Unknown APTT 27.8 Sec. (24.2-36.6) 10/27/17 Unknown Sodium 142 mmol/L (137-145) 11/05/17 05:50 Potassium 3.9 mmol/L (3.6-5.0) 11/05/17 05:50 Chloride 96.9 mmol/L (98-107) L 11/05/17 05:50 Carbon Dioxide 28 mmol/L (22-30) 11/05/17 05:50 Anion Gap 21 mmol/L 11/05/17 05:50 BUN 33 mg/dL (9-20) H 11/05/17 05:50 Creatinine 1.4 mg/dL (0.8-1.5) 11/05/17 05:50 Estimated GFR > 60 ml/min 11/05/17 05:50 BUN/Creatinine Ratio 24 % 11/05/17 05:50 Glucose 151 mg/dL (75-100) H 11/05/17 05:50 POC Glucose 169 (70-105) H 11/05/17 16:04 Lactic Acid 0.90 mmol/L (0.7-2.0) 10/27/17 Unknown Calcium 8.8 mg/dL (8.4-10.2) 11/05/17 05:50 Phosphorus 4.60 mg/dL (2.5-4.5) H D 11/05/17 05:50 Magnesium 2.30 mg/dL (1.7-2.3) 11/05/17 05:50 Total Bilirubin 0.60 mg/dL (0.1-1.2) 11/04/17 05:20 AST 29 units/L (5-40) 11/04/17 05:20 ALT 48 units/L (7-56) 11/04/17 05:20 Alkaline Phosphatase 884 units/L (35-129) H 11/04/17 05:20 Total Creatine Kinase 43 units/L (55-170) L 10/27/17 Unknown Total Protein 7.2 g/dL (6.3-8.2) 11/04/17 05:20 Albumin 3.7 g/dL (3.9-5) L 11/04/17 05:20 Albumin/Globulin Ratio 1.1 % 11/04/17 05:20 Lipase 73 units/L (13-60) H 10/27/17 21:56 Blood Type A POSITIVE 10/27/17 Unknown Antibody Screen Negative 10/27/17 Unknown
[2017-11-05] MEDS: ZOFRAN IV PRN (17:52)
[2017-11-05] MEDS ORDERED: TPN ADULT 2,016 ML IV SCH (20:00)
[2017-11-06] MEDS: DILAUDID IV PRN ×2 (04:58→09:12)
[2017-11-06 05:35] LABS: Calcium 8.2 mg/dL (8.4-10.2)
[2017-11-06] MEDS: HumaLOG SUB-Q SCH ×3 (09:10→22:00)
[2017-11-06] MEDS: K-DUR PO SCH (09:11)
[2017-11-06] MEDS: PROTONIX PO SCH (09:12)
[2017-11-06] MEDS: LOVENOX SUB-Q SCH (09:15)
--- NOTE | 2017-11-06 11:47 | Progress Note ---
Assessment and Plan Assessment and plan: 42-year-old male patient incarcerated from long-term system with history of small gut syndrome Was admitted through emergency room with abdominal pain, noted to have colonic ileus Symptomatically managed, evaluated by surgery, recommend rectal tube and TPN, patient refused, however ileus now resolved Abdominal/colonic ileus; now resolved Supportive care IV fluids, Closely monitor, abdominal series reviewed, surgery evaluated the patient , recommend TPN , patient refused rectal tube Continue soft diet as tolerated Started TPN 11/02 Severe hypokalemia; Now resolved Potassium 4.0 today. ALEC with Cr 2.0 today Repeat and if Cr still high will start iv fluids Hypo-phosphatemia; replaced per protocol Metabolic acidosis; Vigorous IV hydration and closely monitor levels Type 2 diabetes mellitus; Accu-Chek sliding scale coverage and insulin as needed Short gut syndrome; supportive care, Severe protein energy malnutrition. Started on TPN continue supportive care and nutritional supplements as needed DVT prophylaxis with Lovenox Disposition; may be discharged home once TPN arranged Stable to dc when home TPN arranged. Discussed with case management. 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, no focal neurological signs - Constitutional Vitals: Temp Pulse Resp BP Pulse Ox 98.3 F 89 18 86/62 97 11/06/17 07:22 11/06/17 07:22 11/06/17 07:22 11/06/17 07:22 11/06/17 07:22 General appearance: Present: no acute distress, cachectic Results - Labs CBC & Chem 7: 11/04/17 05:20 11/06/17 05:00 Labs: Laboratory Last Values WBC 10.7 K/mm3 (4.5-11.0) 11/04/17 05:20 RBC 3.42 M/mm3 (3.65-5.03) L 11/04/17 05:20 Hgb 10.1 gm/dl (11.8-15.2) L 11/04/17 05:20 Hct 30.5 % (35.5-45.6) L 11/04/17 05:20 MCV 89 fl (84-94) 11/04/17 05:20 MCH 30 pg (28-32) 11/04/17 05:20 MCHC 33 % (32-34) 11/04/17 05:20 RDW 17.0 % (13.2-15.2) H 11/04/17 05:20 Plt Count 309 K/mm3 (140-440) 11/04/17 05:20 Lymph % (Auto) 15.4 % (13.4-35.0) 10/30/17 07:01 [place] % (Auto) 15.3 % (0.0-7.3) H 10/30/17 07:01 Eos % (Auto) 1.6 % (0.0-4.3) 10/30/17 07:01 Baso % (Auto) 0.8 % (0.0-1.8) 10/30/17 07:01 Lymph # 1.5 K/mm3 (1.2-5.4) 10/30/17 07:01 [place] # 1.5 K/mm3 (0.0-0.8) H 10/30/17 07:01 Eos # 0.2 K/mm3 (0.0-0.4) 10/30/17 07:01 Baso # 0.1 K/mm3 (0.0-0.1) 10/30/17 07:01 Add Manual Diff Complete 10/27/17 Unknown Total Counted 100 10/27/17 Unknown Seg Neutrophils % 66.9 % (40.0-70.0) 10/30/17 07:01 Seg Neuts % (Manual) 89.0 % (40.0-70.0) H 10/27/17 Unknown Band Neutrophils % 0 % 10/27/17 Unknown Lymphocytes % (Manual) 6.0 % (13.4-35.0) L 10/27/17 Unknown Reactive Lymphs % (Man) 0 % 10/27/17 Unknown Monocytes % (Manual) 5.0 % (0.0-7.3) 10/27/17 Unknown Eosinophils % (Manual) 0 % (0.0-4.3) 10/27/17 Unknown Basophils % (Manual) 0 % (0.0-1.8) 10/27/17 Unknown Metamyelocytes % 0 % 10/27/17 Unknown Myelocytes % 0 % 10/27/17 Unknown Promyelocytes % 0 % 10/27/17 Unknown Blast Cells % 0 % 10/27/17 Unknown Nucleated RBC % Not Reportable 10/27/17 Unknown Seg Neutrophils # 6.7 K/mm3 (1.8-7.7) 10/30/17 07:01 Seg Neutrophils # Man 13.6 K/mm3 (1.8-7.7) H 10/27/17 Unknown Band Neutrophils # 0.0 K/mm3 10/27/17 Unknown Lymphocytes # (Manual) 0.9 K/mm3 (1.2-5.4) L 10/27/17 Unknown Abs React Lymphs (Man) 0.0 K/mm3 10/27/17 Unknown Monocytes # (Manual) 0.8 K/mm3 (0.0-0.8) 10/27/17 Unknown Eosinophils # (Manual) 0.0 K/mm3 (0.0-0.4) 10/27/17 Unknown Basophils # (Manual) 0.0 K/mm3 (0.0-0.1) 10/27/17 Unknown Metamyelocytes # 0.0 K/mm3 10/27/17 Unknown Myelocytes # 0.0 K/mm3 10/27/17 Unknown Promyelocytes # 0.0 K/mm3 10/27/17 Unknown Blast Cells # 0.0 K/mm3 10/27/17 Unknown WBC Morphology Not Reportable 10/27/17 Unknown Hypersegmented Neuts Not Reportable 10/27/17 Unknown Hyposegmented Neuts Not Reportable 10/27/17 Unknown Hypogranular Neuts Not Reportable 10/27/17 Unknown Smudge Cells Not Reportable 10/27/17 Unknown Toxic Granulation Not Reportable 10/27/17 Unknown Toxic Vacuolation Not Reportable 10/27/17 Unknown Dohle Bodies Not Reportable 10/27/17 Unknown Pelger-Huet Anomaly Not Reportable 10/27/17 Unknown Elina Rods Not Reportable 10/27/17 Unknown Platelet Estimate Appears normal 10/27/17 Unknown Clumped Platelets Not Reportable 10/27/17 Unknown Plt Clumps, EDTA Not Reportable 10/27/17 Unknown Large Platelets Not Reportable 10/27/17 Unknown Giant Platelets Not Reportable 10/27/17 Unknown Platelet Satelliting Not Reportable 10/27/17 Unknown Plt Morphology Comment Not Reportable 10/27/17 Unknown RBC Morphology Not Reportable 10/27/17 Unknown Dimorphic RBCs Not Reportable 10/27/17 Unknown Polychromasia Not Reportable 10/27/17 Unknown Hypochromasia Not Reportable 10/27/17 Unknown Poikilocytosis Not Reportable 10/27/17 Unknown Anisocytosis Few 10/27/17 Unknown Microcytosis Not Reportable 10/27/17 Unknown Macrocytosis Not Reportable 10/27/17 Unknown Spherocytes Not Reportable 10/27/17 Unknown Pappenheimer Bodies Not Reportable 10/27/17 Unknown Sickle Cells Not Reportable 10/27/17 Unknown Target Cells 1+ 10/27/17 Unknown Tear Drop Cells Not Reportable 10/27/17 Unknown Ovalocytes Not Reportable 10/27/17 Unknown Helmet Cells Not Reportable 10/27/17 Unknown [place] Bodies Not Reportable 10/27/17 Unknown [place] Rings Not Reportable 10/27/17 Unknown [place] Cells Not Reportable 10/27/17 Unknown Bite Cells Not Reportable 10/27/17 Unknown Crenated Cell Not Reportable 10/27/17 Unknown Elliptocytes Not Reportable 10/27/17 Unknown Acanthocytes (Spur) Not Reportable 10/27/17 Unknown Rouleaux Not Reportable 10/27/17 Unknown Hemoglobin C Crystals Not Reportable 10/27/17 Unknown Schistocytes Not Reportable 10/27/17 Unknown Malaria parasites Not Reportable 10/27/17 Unknown [place] Bodies Not Reportable 10/27/17 Unknown Hem Pathologist Commnt No 10/27/17 Unknown PT 15.8 Sec. (12.2-14.9) H 10/27/17 Unknown INR 1.19 (0.87-1.13) H 10/27/17 Unknown APTT 27.8 Sec. (24.2-36.6) 10/27/17 Unknown Sodium 143 mmol/L (137-145) 11/06/17 05:00 Potassium 4.0 mmol/L (3.6-5.0) 11/06/17 05:00 Chloride 93.0 mmol/L (98-107) L 11/06/17 05:00 Carbon Dioxide 33 mmol/L (22-30) H 11/06/17 05:00 Anion Gap 21 mmol/L 11/06/17 05:00 BUN 54 mg/dL (9-20) H 11/06/17 05:00 Creatinine 2.0 mg/dL (0.8-1.5) H 11/06/17 05:00 Estimated GFR 44 ml/min 11/06/17 05:00 BUN/Creatinine Ratio 27 % 11/06/17 05:00 Glucose 155 mg/dL (75-100) H 11/06/17 05:00 POC Glucose 198 (70-105) H 11/06/17 07:33 Lactic Acid 0.90 mmol/L (0.7-2.0) 10/27/17 Unknown Calcium 8.2 mg/dL (8.4-10.2) L 11/06/17 05:00 Phosphorus 4.90 mg/dL (2.5-4.5) H 11/06/17 05:00 Magnesium 2.30 mg/dL (1.7-2.3) 11/05/17 05:50 Total Bilirubin 0.60 mg/dL (0.1-1.2) 11/04/17 05:20 AST 29 units/L (5-40) 11/04/17 05:20 ALT 48 units/L (7-56) 11/04/17 05:20 Alkaline Phosphatase 884 units/L (35-129) H 11/04/17 05:20 Total Creatine Kinase 43 units/L (55-170) L 10/27/17 Unknown Total Protein 7.2 g/dL (6.3-8.2) 11/04/17 05:20 Albumin 3.7 g/dL (3.9-5) L 11/04/17 05:20 Albumin/Globulin Ratio 1.1 % 11/04/17 05:20 Lipase 73 units/L (13-60) H 10/27/17 21:56 Blood Type A POSITIVE 10/27/17 Unknown Antibody Screen Negative 10/27/17 Unknown
[2017-11-06] MEDS ORDERED: TPN ADULT 2,016 ML IV SCH (20:00)
[2017-11-06 20:03] LABS: Calcium 8.3 mg/dL (8.4-10.2)
[2017-11-06] MEDS ORDERED: NACL 0.9% 500 ML 500 ML IV ONE (23:55)
[2017-11-07] MEDS: K-DUR PO SCH ×3 (01:00→22:19)
[2017-11-07] MEDS: DILAUDID IV PRN ×3 (02:29→21:59)
[2017-11-07] MEDS: SODIUM CHLORIDE FLUSH SYRINGE 10 ML IV SCH ×3 (02:31→22:18)
[2017-11-07] MEDS: NACL 0.9% 1000 ML 1,000 ML IV SCH ×2 (03:50→17:53)
[2017-11-07 07:12] LABS: Calcium 7.9 mg/dL (8.4-10.2)
[2017-11-07] MEDS: PROTONIX PO SCH (09:29)
[2017-11-07] MEDS: HumaLOG SUB-Q SCH ×5 (09:37→22:19)
[2017-11-07] MEDS: LOVENOX SUB-Q SCH (10:29)
--- NOTE | 2017-11-07 14:01 | Progress Note ---
Assessment and Plan /Abdominal/colonic ileus; now resolved Supportive care IV fluids, Closely monitor, abdominal series reviewed, surgery evaluated the patient , recommend TPN , patient refused rectal tube Continue soft diet as tolerated Started TPN 11/02 /Severe hypokalemia; Now resolved with replacement /Hypotension, BP chronically low, cont iv fluid /Chronic pain, takes narcotics at home per his statement counselled to limit use for low BP, pt understands /ALEC with Cr 1.7 today cont iv fluids along with TPN /Hypo-phosphatemia; replaced per protocol /Metabolic acidosis; Vigorous IV hydration and closely monitor levels /Type 2 diabetes mellitus; Accu-Chek sliding scale coverage and insulin as needed /Short gut syndrome; supportive care, /Severe protein energy malnutrition. Started on TPN , continue supportive care and nutritional supplements as needed DVT prophylaxis with Lovenox Disposition; may be discharged home once TPN arranged. Stable to dc when home TPN arranged. Discussed with case management. Brief History: 42-year-old male patient incarcerated from senior care system with history of small gut syndrome Was admitted through emergency room with abdominal pain, noted to have colonic ileus. Symptomatically managed, evaluated by surgery, recommend rectal tube and TPN, however ileus now resolved. 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, no focal neurological signs Subjective Date of service: 11/07/17 Interval history: Pt seen and examined BP at high 80s today Wants to eat cheese burger c/o chronic generalized pain Objective - Constitutional Vitals: Vital Signs - 12hr 11/07/17 11/07/17 11/07/17 02:17 04:27 08:00 Temperature 97.9 F 98 F Pulse Rate 108 H 84 71 Respiratory 18 18 18 Rate Blood Pressure 101/57 88/66 Blood Pressure 82/57 [Left] O2 Sat by Pulse 98 98 98 Oximetry 07/24/18 11:17 Temperature 98.6 F Pulse Rate 96 H Respiratory 16 Rate Blood Pressure 89/66 Blood Pressure [Left] O2 Sat by Pulse 98 Oximetry - Labs CBC & Chem 7: 11/04/17 05:20 11/09/17 05:50 Labs: Abnormal lab results 11/06/17 11/06/17 11/06/17 Range/Units 16:30 19:20 22:18 Chloride 91.8 L (98-107) mmol/L Carbon Dioxide 33 H (22-30) mmol/L BUN 62 H (9-20) mg/dL Creatinine 1.9 H (0.8-1.5) mg/dL Glucose 182 H (75-100) mg/dL POC Glucose 217 H 136 H (70-105) Calcium 8.3 L (8.4-10.2) mg/dL Magnesium (1.7-2.3) mg/dL 11/07/17 11/07/17 11/07/17 Range/Units 06:30 07:10 11:28 Chloride 94.7 L (98-107) mmol/L Carbon Dioxide (22-30) mmol/L BUN 63 H (9-20) mg/dL Creatinine 1.7 H (0.8-1.5) mg/dL Glucose 142 H (75-100) mg/dL POC Glucose 163 H 202 H (70-105) Calcium 7.9 L (8.4-10.2) mg/dL Magnesium 2.50 H (1.7-2.3) mg/dL
[2017-11-07] MEDS: ZOFRAN IV PRN (17:53)
[2017-11-07] MEDS: NORCO 5/325 PO PRN (17:55)
[2017-11-07] MEDS ORDERED: TPN ADULT 2,016 ML IV SCH (20:00)
[2017-11-07] MEDS ORDERED: INTRALIPID 20% 250 ML IV SCH (20:00)
[2017-11-08] MEDS: NACL 0.9% 1000 ML 1,000 ML IV SCH (02:21)
[2017-11-08] MEDS: NORCO 5/325 PO PRN (05:31)
[2017-11-08 08:17] LABS: BUN/Creatinine Ratio 39; Blood Urea Nitrogen 47 mg/dL (9-20); Hemolysis Index 1
[2017-11-08] MEDS: K-DUR PO SCH ×2 (10:50→22:41)
[2017-11-08] MEDS: LOVENOX SUB-Q SCH (10:50)
[2017-11-08] MEDS: PROTONIX PO SCH (10:51)
[2017-11-08] MEDS: SODIUM CHLORIDE FLUSH SYRINGE 10 ML IV SCH (10:53)
[2017-11-08] MEDS: HumaLOG SUB-Q SCH ×4 (11:54→22:43)
[2017-11-08] MEDS: DILAUDID IV PRN ×2 (12:02→21:01)
--- NOTE | 2017-11-08 15:25 | Event Note ---
Date: 11/08/17 I have been asked by administration to take over the surgical consultation role. I discussed the current state of the patient with Dr. Bejarano and have reviewed the pertinent notes. There are no issues at this time that require my assistance. The main surgical issues (colonic ileus) has resolved. She will call as needed.
--- NOTE | 2017-11-08 17:34 | Progress Note ---
Assessment and Plan /Abdominal/colonic ileus; now resolved Supportive care IV fluids, Closely monitor, abdominal series reviewed, surgery evaluated the patient , recommend TPN , patient refused rectal tube Continue soft diet as tolerated Started TPN 11/02 /Severe hypokalemia; Now resolved with replacement /Hypotension, BP chronically low, cont iv fluid /Chronic pain, takes narcotics at home per his statement counselled to limit use for low BP, pt understands /ALEC with Cr 1.7 today cont iv fluids along with TPN /Hypo-phosphatemia; replaced per protocol /Metabolic acidosis; Vigorous IV hydration and closely monitor levels /Type 2 diabetes mellitus; Accu-Chek sliding scale coverage and insulin as needed /Short gut syndrome; supportive care, /Severe protein energy malnutrition. Started on TPN , continue supportive care and nutritional supplements as needed DVT prophylaxis with Lovenox Disposition; may be discharged home once TPN arranged. Stable to dc when home TPN arranged. Discussed with case management. Brief History: 42-year-old male patient incarcerated from halfway system with history of small gut syndrome Was admitted through emergency room with abdominal pain, noted to have colonic ileus. Symptomatically managed, evaluated by surgery, recommend rectal tube and TPN, however ileus now resolved. 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
[2017-11-08] MEDS ORDERED: TPN ADULT 2,016 ML IV SCH (20:00)
[2017-11-08] MEDS ORDERED: INTRALIPID 20% 250 ML IV SCH (20:00)
[2017-11-08] MEDS: ZOFRAN IV PRN (21:02)
[2017-11-09] MEDS: DILAUDID IV PRN ×5 (00:54→20:58)
[2017-11-09] MEDS: SODIUM CHLORIDE FLUSH SYRINGE 10 ML IV SCH ×3 (00:55→22:58)
[2017-11-09] MEDS: NACL 0.9% 1000 ML 1,000 ML IV SCH ×2 (00:57→10:05)
[2017-11-09 06:25] LABS: BUN/Creatinine Ratio 36; Blood Urea Nitrogen 32 mg/dL (9-20); Calcium 8.4 mg/dL (8.4-10.2); Hemolysis Index 54
[2017-11-09] MEDS: HumaLOG SUB-Q SCH ×4 (09:07→22:59)
[2017-11-09] MEDS: PROTONIX PO SCH (09:57)
[2017-11-09] MEDS: K-DUR PO SCH ×2 (09:57→22:58)
[2017-11-09] MEDS: LOVENOX SUB-Q SCH (10:07)
[2017-11-09] MEDS: ZOFRAN IV PRN (15:04)
--- NOTE | 2017-11-09 16:13 | Progress Note ---
Assessment and Plan /Abdominal/colonic ileus; now resolved Supportive care IV fluids, Closely monitor, abdominal series reviewed, surgery evaluated the patient , recommend TPN , patient refused rectal tube Continue soft diet as tolerated Started TPN 11/02 /Severe hypokalemia; Now resolved with replacement /Hypotension, BP chronically low, cont iv fluid /Chronic pain, takes narcotics at home per his statement counselled to limit use for low BP, pt understands /ALEC with Cr 1.7 today cont iv fluids along with TPN /Hypo-phosphatemia; replaced per protocol /Metabolic acidosis; Vigorous IV hydration and closely monitor levels /Type 2 diabetes mellitus; Accu-Chek sliding scale coverage and encouraged to take insulin as needed /Short gut syndrome; supportive care, /Severe protein energy malnutrition. Started on TPN , continue supportive care and nutritional supplements as needed DVT prophylaxis with Lovenox Disposition; may be discharged home once TPN arranged. Stable to dc when home TPN arranged. Discussed with case management. Brief History: 42-year-old male patient incarcerated from intermediate system with history of small gut syndrome Was admitted through emergency room with abdominal pain, noted to have colonic ileus. Symptomatically managed, evaluated by surgery, recommend rectal tube and TPN, however ileus now resolved. 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,oriented x3, no focal neurological signs Subjective Date of service: 11/09/17 Interval history: Pt seen and examined continue c/o chronic generalized pain refusing insulin Objective - Constitutional Vitals: Vital Signs - 12hr 11/09/17 11/09/17 11/09/17 05:07 08:00 10:12 Temperature 98.7 F Pulse Rate 84 77 80 Respiratory 17 20 Rate Respiratory Rate [ generalized] Blood Pressure 84/54 103/76 Blood Pressure 89/55 [Left] O2 Sat by Pulse 100 100 94 Oximetry 11/09/17 11/09/17 11/09/17 10:27 10:57 14:55 Temperature 97.9 F Pulse Rate 84 Respiratory 20 18 20 Rate Respiratory 20 Rate [ generalized] Blood Pressure Blood Pressure 96/55 [Left] O2 Sat by Pulse 100 Oximetry 11/09/17 15:04 Temperature Pulse Rate Respiratory 20 Rate Respiratory Rate [ generalized] Blood Pressure Blood Pressure [Left] O2 Sat by Pulse Oximetry - Labs CBC & Chem 7: 11/04/17 05:20 11/09/17 05:50 Labs: Abnormal lab results 11/08/17 11/08/17 11/09/17 Range/Units 17:54 22:17 05:50 Carbon Dioxide 21 L (22-30) mmol/L BUN 32 H (9-20) mg/dL Glucose 154 H (75-100) mg/dL POC Glucose 224 H 196 H (70-105) Phosphorus 2.20 L (2.5-4.5) mg/dL 11/09/17 Range/Units 08:10 Carbon Dioxide (22-30) mmol/L BUN (9-20) mg/dL Glucose (75-100) mg/dL POC Glucose 217 H (70-105) Phosphorus (2.5-4.5) mg/dL
[2017-11-09] MEDS ORDERED: TPN ADULT 2,016 ML IV SCH (20:00)
[2017-11-10] MEDS: DILAUDID IV PRN ×6 (00:46→21:44)
[2017-11-10] MEDS: NACL 0.9% 1000 ML 1,000 ML IV SCH ×2 (00:47→22:12)
[2017-11-10 06:24] LABS: BUN/Creatinine Ratio 26; Blood Urea Nitrogen 26 mg/dL (9-20); Calcium 8.7 mg/dL (8.4-10.2); Hemolysis Index 2
[2017-11-10] MEDS: HumaLOG SUB-Q SCH ×4 (08:30→22:13)
[2017-11-10] MEDS: PROTONIX PO SCH (09:32)
[2017-11-10] MEDS: K-DUR PO SCH ×2 (09:32→21:45)
[2017-11-10] MEDS: SODIUM CHLORIDE FLUSH SYRINGE 10 ML IV SCH (09:35)
[2017-11-10] MEDS: LOVENOX SUB-Q SCH (10:00)
--- NOTE | 2017-11-10 14:35 | Discharge Summary ---
Providers - Providers Date of Admission: 10/27/17 23:14 Date of discharge: 11/10/17 Attending physician: TINY VIVEROS 10/27/17 22:34 Consult to Physician [CONS] Urgent Comment: completed - Maya Consulting Provider: BOO LOAIZA Physician Instructions: d/w Dr José Manuel Longo who stated he would follow Reason For Exam: colonic ileus 10/29/17 15:49 Consult to Dietitian/Nutrition [CONS] Routine Physician Instructions: Reason For Exam: Reason for Consult: Malnutrition 11/02/17 10:31 Consult to Dietitian/Nutrition [CONS] Routine Physician Instructions: Reason For Exam: Reason for Consult: Write/Manage TPN/PPN 11/03/17 09:25 Consult to Case Management [CONS] Routine Services Needed at Discharge: Home Health Services Other Notified:: sanchez Was contact made?: Yes Comment:: spoke with Dr. Hill Additional Physician Instructions: Pt. 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 Symptomatically managed, evaluated by surgery, recommend rectal tube and TPN, however ileus now resolved. Discharge diagnosis and management: /Abdominal/colonic ileus; now resolved Supportive care IV fluids, Closely monitor, abdominal series reviewed, surgery evaluated the patient , recommend TPN , patient refused rectal tube Continue soft diet as tolerated Started TPN 11/02 /Severe hypokalemia; Now resolved with replacement /Hypotension, BP chronically low, cont iv fluid /Chronic pain, takes narcotics at home per his statement counselled to limit use for low BP, pt understands /ALEC with Cr 1.7 today cont iv fluids along with TPN /Hypo-phosphatemia; replaced per protocol /Metabolic acidosis; Vigorous IV hydration and closely monitor levels /Type 2 diabetes mellitus; Accu-Chek sliding scale coverage and encouraged to take insulin as needed /Short gut syndrome; supportive care, /Severe protein energy malnutrition. Started on TPN , continue supportive care and nutritional supplements as needed DVT prophylaxis with Lovenox Disposition; may be discharged home once TPN arranged. Stable to dc when home TPN arranged. Discussed with case management. 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, ASSOCIATE DEAN OF WOMEN: awake, alert,oriented x3, no focal neurological signs Disposition: DC-01 TO HOME OR SELFCARE Time spent for discharge: 34 minutes Core Measure Documentation - Palliative Care Palliative Care/ Comfort Measures: Not Applicable - Core Measures Any of the following diagnoses?: none Exam - Constitutional Vitals: Temp Pulse Resp BP Pulse Ox 98.7 F 89 18 98/54 97 11/10/17 12:00 11/10/17 12:00 11/10/17 12:00 11/10/17 12:00 11/10/17 12:00 Plan Activity: advance as tolerated Weight Bearing Status: Non-Weight Bearing Diet: other (TPN) Follow up with: PRIMARY CARE, [Primary Care Provider] - 3-5 Days Prescriptions: HYDROcodone/APAP 5-325 [[place] 5-325 mg TAB] 1 each PO Q6H PRN #30 tablet PRN Reason: Pain, Moderate (4-6) Pantoprazole [Protonix TAB] 40 mg PO DAILY #30 tablet Potassium Chloride [K-Dur] 40 meq PO BID #20 tablet Promethazine [Phenergan TAB] 25 mg PO Q8H PRN #14 tablet PRN Reason: Nausea And Vomiting
[2017-11-10] MEDS ORDERED: INTRALIPID 20% 250 ML IV SCH (20:00)
[2017-11-10] MEDS ORDERED: TPN ADULT 2,016 ML IV SCH (20:00)
--- NOTE | 2017-11-10 22:41 | Progress Note ---
Assessment and Plan /Abdominal/colonic ileus; now resolved Supportive care IV fluids, Closely monitor, abdominal series reviewed, surgery evaluated the patient , recommend TPN , patient refused rectal tube Continue soft diet as tolerated Started TPN 11/02 /Severe hypokalemia; Now resolved with replacement /Hypotension, BP chronically low, cont iv fluid /Chronic pain, takes narcotics at home per his statement counselled to limit use for low BP, pt understands /ALEC with Cr 1.7 today cont iv fluids along with TPN /Hypo-phosphatemia; replaced per protocol /Metabolic acidosis; Vigorous IV hydration and closely monitor levels /Type 2 diabetes mellitus; Accu-Chek sliding scale coverage and encouraged to take insulin as needed /Short gut syndrome; supportive care, /Severe protein energy malnutrition. Started on TPN , continue supportive care and nutritional supplements as needed DVT prophylaxis with Lovenox Disposition; may be discharged home once TPN arranged. Stable to dc when home TPN arranged. Discussed with case management. Brief History: 42-year-old male patient incarcerated from longterm system with history of small gut syndrome Was admitted through emergency room with abdominal pain, noted to have colonic ileus. Symptomatically managed, evaluated by surgery, recommend rectal tube and TPN, however ileus now resolved. 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, LENO SEWER: awake, alert,oriented x3, no focal neurological signs Subjective Date of service: 11/10/17 Interval history: Pt seen and examined continue c/o chronic generalized pain refusing insulin Objective - Constitutional Vitals: Vital Signs - 12hr 11/10/17 11/10/17 11/10/17 12:00 16:00 20:15 Temperature 98.7 F 98.2 F 98.4 F Pulse Rate 89 85 94 H Respiratory 18 18 20 Rate Blood Pressure 98/70 Blood Pressure 98/54 96/53 [Left] O2 Sat by Pulse 97 98 100 Oximetry 07/27/18 21:44 Temperature Pulse Rate Respiratory 17 Rate Blood Pressure Blood Pressure [Left] O2 Sat by Pulse Oximetry - Labs CBC & Chem 7: 11/04/17 05:20 11/10/17 05:10 Labs: Abnormal lab results 11/10/17 11/10/17 11/10/17 Range/Units 05:10 08:26 11:40 Sodium 146 H (137-145) mmol/L Chloride 111.7 H (98-107) mmol/L Carbon Dioxide 20 L (22-30) mmol/L BUN 26 H (9-20) mg/dL Glucose 122 H (75-100) mg/dL POC Glucose 141 H 196 H (70-105)
[2017-11-11] MEDS: DILAUDID IV PRN ×5 (01:51→21:33)
[2017-11-11] MEDS: SODIUM CHLORIDE FLUSH SYRINGE 10 ML IV PRN (01:51)
[2017-11-11] MEDS: SODIUM CHLORIDE FLUSH SYRINGE 10 ML IV SCH ×3 (01:58→23:02)
[2017-11-11] MEDS: HumaLOG SUB-Q SCH ×4 (08:47→23:55)
[2017-11-11] MEDS: K-DUR PO SCH ×2 (11:35→23:00)
[2017-11-11] MEDS: PROTONIX PO SCH (11:36)
[2017-11-11] MEDS: NORCO 5/325 PO PRN (11:36)
[2017-11-11] MEDS: LOVENOX SUB-Q SCH (11:37)
--- NOTE | 2017-11-11 12:22 | Progress Note ---
Assessment and Plan /Abdominal/colonic ileus; now resolved Supportive care IV fluids, Closely monitor, abdominal series reviewed, surgery evaluated the patient , recommend TPN , patient refused rectal tube Continue soft diet as tolerated Started TPN 11/02 /Severe hypokalemia; Now resolved with replacement /Hypotension, BP chronically low, cont iv fluid /Chronic pain, takes narcotics at home per his statement counselled to limit use for low BP, pt understands /ALEC with Cr 1.7 today cont iv fluids along with TPN /Hypo-phosphatemia; replaced per protocol /Metabolic acidosis; Vigorous IV hydration and closely monitor levels /Type 2 diabetes mellitus; Accu-Chek sliding scale coverage and encouraged to take insulin as needed /Short gut syndrome; supportive care, /Severe protein energy malnutrition. Started on TPN , continue supportive care and nutritional supplements as needed DVT prophylaxis with Lovenox Disposition; may be discharged home once TPN arranged. Stable to dc when home TPN arranged. Discussed with case management. Brief History: 42-year-old male patient incarcerated from custodial system with history of small gut syndrome Was admitted through emergency room with abdominal pain, noted to have colonic ileus. Symptomatically managed, evaluated by surgery, recommend rectal tube and TPN, however ileus now resolved. 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,oriented x3, no focal neurological signs Subjective Date of service: 11/11/17 Interval history: Pt seen and examined continue c/o chronic generalized pain refusing insulin Objective - Constitutional Vitals: Vital Signs - 12hr 11/11/17 11/11/17 11/11/17 00:37 01:51 02:21 Temperature 98.6 F Pulse Rate 84 Respiratory 18 16 17 Rate Respiratory Rate [ generalized] Blood Pressure 98/65 Blood Pressure [Left] O2 Sat by Pulse 100 Oximetry 11/11/17 11/11/17 11/11/17 04:58 08:13 08:15 Temperature 98.8 F 99.2 F Pulse Rate 83 85 Respiratory 18 18 Rate Respiratory Rate [ generalized] Blood Pressure 92/65 100/70 Blood Pressure [Left] O2 Sat by Pulse 97 99 Oximetry 11/11/17 11/11/17 10:00 11:56 Temperature 98.8 F Pulse Rate 87 Respiratory 18 Rate Respiratory 17 Rate [ generalized] Blood Pressure Blood Pressure 99/57 [Left] O2 Sat by Pulse 98 Oximetry - Labs CBC & Chem 7: 11/04/17 05:20 11/10/17 05:10 Labs: Abnormal lab results 11/11/17 Range/Units 08:23 POC Glucose 152 H (70-105)
[2017-11-11] MEDS ORDERED: NORCO 5/325 PO PRN (12:23)
[2017-11-11] MEDS: NACL 0.9% 1000 ML 1,000 ML IV SCH ×2 (13:45→23:09)
[2017-11-11] MEDS: ZOFRAN IV PRN (17:58)
[2017-11-11] MEDS ORDERED: TPN ADULT 2,016 ML IV SCH (20:00)
[2017-11-12] MEDS: DILAUDID IV PRN ×5 (01:26→21:39)
[2017-11-12 06:44] LABS: Basophils # (Auto) 0.1 K/mm3 (0.0-0.1); Basophils % (Auto) 0.7 % (0.0-1.8); Eosinophils % (Auto) 0.3 % (0.0-4.3); Hematocrit 25.3 % (35.5-45.6); Hemoglobin 8.2 gm/dl (11.8-15.2); Lymphocytes # (Auto) 1.6 K/mm3 (1.2-5.4); Lymphocytes % (Auto) 12.3 % (13.4-35.0); Mean Corpuscular HGB Conc 32 % (32-34); Mean Corpuscular Hemoglobin 30 pg (28-32); Mean Corpuscular Volume 91 fl (84-94); Monocytes # (Auto) 1.6 K/mm3 (0.0-0.8); Monocytes % (Auto) 12.9 % (0.0-7.3); Platelet Count 300 K/mm3 (140-440); Red Blood Count 2.78 M/mm3 (3.65-5.03); Red Cell Distribution Width 17.1 % (13.2-15.2)
[2017-11-12 06:56] LABS: BUN/Creatinine Ratio 24; Blood Urea Nitrogen 26 mg/dL (9-20); Calcium 8.3 mg/dL (8.4-10.2)
[2017-11-12 06:57] LABS: Hemolysis Index 0
[2017-11-12] MEDS: NACL 0.9% 1000 ML 1,000 ML IV SCH ×2 (07:00→17:24)
[2017-11-12] MEDS: HumaLOG SUB-Q SCH ×4 (10:40→22:00)
[2017-11-12] MEDS: LOVENOX SUB-Q SCH (10:40)
[2017-11-12] MEDS: K-DUR PO SCH ×2 (11:00→22:46)
[2017-11-12] MEDS: PROTONIX PO SCH (11:00)
[2017-11-12] MEDS: SODIUM CHLORIDE FLUSH SYRINGE 10 ML IV SCH ×2 (11:01→22:58)
--- NOTE | 2017-11-12 14:20 | Progress Note ---
Assessment and Plan /Abdominal/colonic ileus; now resolved Supportive care IV fluids, Closely monitor, abdominal series reviewed, surgery evaluated the patient , recommend TPN , Continue soft diet as tolerated Started TPN since 11/02 /Severe hypokalemia; Now resolved with replacement /Hypotension, BP chronically low, cont iv fluid /Chronic pain, takes narcotics at home per his statement counselled to limit use for low BP, pt understands /ALEC with Cr 1.7 today cont iv fluids along with TPN /Hypo-phosphatemia; replaced per protocol /Metabolic acidosis; Vigorous IV hydration and closely monitor levels /Type 2 diabetes mellitus; Accu-Chek sliding scale coverage and encouraged to take insulin as needed /Short gut syndrome; supportive care, /Severe protein energy malnutrition. Started on TPN , continue supportive care and nutritional supplements as needed DVT prophylaxis with Lovenox Disposition; may be discharged home once TPN arranged. Stable to dc when home TPN arranged. Discussed with case management. Brief History: 42-year-old male patient incarcerated from detention system with history of small gut syndrome Was admitted through emergency room with abdominal pain, noted to have colonic ileus. Symptomatically managed, evaluated by surgery, recommend rectal tube and TPN, however ileus now resolved. 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 x3, no focal neurological signs Subjective Date of service: 11/12/17 Interval history: Pt seen and examined continue c/o chronic generalized pain and asking for more pain meds Objective - Constitutional Vitals: Vital Signs - 12hr 11/12/17 11/12/17 11/12/17 05:38 07:43 11:25 Temperature 98.5 F 98.4 F Pulse Rate 68 96 H 88 Respiratory 18 18 16 Rate Blood Pressure 98/64 87/60 96/71 O2 Sat by Pulse 100 78 L 100 Oximetry - Labs CBC & Chem 7: 11/12/17 05:40 11/12/17 05:40 Labs: Abnormal lab results 11/11/17 11/11/17 11/12/17 Range/Units 16:38 22:32 05:40 WBC 12.7 H (4.5-11.0) K/mm3 RBC 2.78 L (3.65-5.03) M/mm3 Hgb 8.2 L (11.8-15.2) gm/dl Hct 25.3 L (35.5-45.6) % RDW 17.1 H (13.2-15.2) % Lymph % (Auto) 12.3 L (13.4-35.0) % [place] % (Auto) 12.9 H (0.0-7.3) % [place] # 1.6 H (0.0-0.8) K/mm3 Seg Neutrophils % 73.8 H (40.0-70.0) % Seg Neutrophils # 9.4 H (1.8-7.7) K/mm3 Sodium (137-145) mmol/L Chloride (98-107) mmol/L Carbon Dioxide (22-30) mmol/L BUN (9-20) mg/dL Glucose (75-100) mg/dL POC Glucose 106 H 165 H (70-105) Calcium (8.4-10.2) mg/dL 11/12/17 11/12/17 11/12/17 Range/Units 05:40 07:52 11:36 WBC (4.5-11.0) K/mm3 RBC (3.65-5.03) M/mm3 Hgb (11.8-15.2) gm/dl Hct (35.5-45.6) % RDW (13.2-15.2) % Lymph % (Auto) (13.4-35.0) % [place] % (Auto) (0.0-7.3) % [place] # (0.0-0.8) K/mm3 Seg Neutrophils % (40.0-70.0) % Seg Neutrophils # (1.8-7.7) K/mm3 Sodium 147 H (137-145) mmol/L Chloride 112.5 H (98-107) mmol/L Carbon Dioxide 20 L (22-30) mmol/L BUN 26 H (9-20) mg/dL Glucose 121 H (75-100) mg/dL POC Glucose 169 H 141 H (70-105) Calcium 8.3 L (8.4-10.2) mg/dL
[2017-11-12] MEDS ORDERED: TPN ADULT 2,016 ML IV SCH (20:00)
[2017-11-13] MEDS: DILAUDID IV PRN ×5 (01:04→17:01)
[2017-11-13] MEDS: NACL 0.9% 1000 ML 1,000 ML IV SCH (02:22)
[2017-11-13 06:02] LABS: BUN/Creatinine Ratio 21; Blood Urea Nitrogen 25 mg/dL (9-20); Calcium 7.9 mg/dL (8.4-10.2); Hemolysis Index 2
[2017-11-13] MEDS: HumaLOG SUB-Q SCH ×3 (08:20→16:30)
[2017-11-13] MEDS: K-DUR PO SCH (09:05)
[2017-11-13] MEDS: PROTONIX PO SCH (09:05)
[2017-11-13] MEDS: SODIUM CHLORIDE FLUSH SYRINGE 10 ML IV SCH (09:06)
[2017-11-13] MEDS: ZOFRAN IV PRN (09:13)
[2017-11-13] MEDS: LOVENOX SUB-Q SCH (10:00)
[2017-11-13 13:09] VITALS: BP 92/52
[2017-11-13] MEDS ORDERED: INTRALIPID 20% 250 ML IV SCH (20:00)
[2017-11-13] MEDS ORDERED: TPN ADULT 2,000 ML IV SCH (20:00)
== END 2017-11-13 22:21 | disposition home health service (06) | DRG 388 ==
LOC: ED 18:19 → EEVIPCON 18:19 → 4A 23:14 → 3B-SURG 10-29 19:34
PROVIDERS: ADMIT Internal Medicine; ATTEND Internal Medicine
PROC: 3E0336Z Introduction of Nutritional Substance into Peripheral Vein, Percutaneous Approach (ICD-10-PCS; principal; 2017-11-02)
DX: K56.7 Ileus, unspecified (principal); E43 Unspecified severe protein-calorie malnutrition; K91.2 Postsurgical malabsorption, not elsewhere classified; Z68.1 Body mass index [BMI] 19.9 or less, adult; E87.2 Acidosis; N17.9 Acute kidney failure, unspecified; E87.6 Hypokalemia; Y83.8 Other surgical procedures as the cause of abnormal reaction of the patient, or of later complication, without mention of misadventure at the time of the procedure; E83.39 Other disorders of phosphorus metabolism; Z53.29 Procedure and treatment not carried out because of patient's decision for other reasons; E11.9 Type 2 diabetes mellitus without complications; F17.210 Nicotine dependence, cigarettes, uncomplicated; Z90.81 Acquired absence of spleen; Z82.49 Family history of ischemic heart disease and other diseases of the circulatory system; Z79.899 Other long term (current) drug therapy; Z86.14 Personal history of Methicillin resistant Staphylococcus aureus infection; Y92.89 Other specified places as the place of occurrence of the external cause
CPT/HCPCS: 36415; 74019; 74022; 74176; 80048; 80053; 82140; 82550; 82962; 83690; 83735; 84100; 84132; 84478; 85007; 85025; 85027; 85610; 85730; 86850; 86900; 86901; 87116; 93005; 93010; 99406; J1170; J1650; J1815; J2270; J2405; J3480; J7030; J7040